=== PATIENT | male | born 1985 | race African-American/Black ===

== ENCOUNTER 2023-06-23 14:18 | Emergency (ER) | payer SELFPAY ==
--- NOTE | ~2023-06-23 | CT_ITS ---
EXAMINATION: CT ABDOMEN AND PELVIS WITHOUT CONTRAST CLINICAL INFORMATION: Hematuria. Kidney stones. COMPARISON: None available. TECHNIQUE: Multidetector volumetric imaging was performed from the superior aspect of the liver through the pubic symphysis. Sagittal and coronal reformatted images were obtained on the technologist's workstation. This CT examination was performed using dose optimization techniques as appropriate, variously including the following: *Automated exposure control *Adjustment of mA and/or kV according to patient size (this includes techniques or standardized protocols for targeted exams where dose is matched to indication/reason for exam; i.e. extremities or head) *Use of iterative reconstruction technique DLP: 1192 mGy-cm FINDINGS: Visualized lung bases are well aerated. The liver is normal in size but demonstrates diffusely decreased attenuation. The gallbladder is normal in appearance. The pancreas, spleen and adrenal glands are unremarkable. There is a 4 mm calculus within the left renal pelvis, however, there is no associated hydronephrosis. No right-sided renal calculi or right-sided hydronephrosis identified. Normal caliber loops of small and large bowel. Normal appendix. Normal caliber abdominal aorta. No retroperitoneal lymphadenopathy. The bladder is decompressed and therefore not accurately evaluated. The prostate gland is normal in size. Small left and moderate right-sided fat-containing inguinal hernias. No inguinal lymphadenopathy. No gross free pelvic fluid. Mild diffuse degenerative changes of the spine. CT/CT abdomen pelvis wo IV con IMPRESSION: -4 mm calculus within the left renal pelvis, however, there is no associated hydronephrosis. -Diffusely decreased liver attenuation suggesting hepatic steatosis. Correlation with liver enzymes recommended. Fleischner guidelines were followed.
[2023-06-23 15:02] VITALS: BP 147/62; PULSE 95; RESP 18; TEMP 36.6; O2SAT 96; BMI 42.3
--- NOTE | 2023-06-23 15:07 | ED_ITS ---
HPI - Male Genitourinary General Chief complaint: Urogenital-Male Stated complaint: Blood in Urine Time Seen by Provider: 06/23/23 17:24 Source: patient Mode of arrival: ambulatory Limitations: no limitations History of Present Illness HPI Narrative: This is a 38-year-old male history of obesity presenting to the emergency department with blood-tinged urine for the past 24 hours. Denies any other associated symptoms. No history of kidney stones. Denies urinary frequency, urgency, back pain, abdominal pain, nausea, vomiting, fevers, chills, testicular pain, chest pain, shortness of breath. Related Data Previous Rx's Medication Instructions Recorded cefuroxime axetil 250 mg tablet 250 mg PO BID 7 days #14 tabs 06/23/23 ciprofloxacin 0.3 %-dexamethasone 4 drp otic (ear) right BID 7 days 06/23/23 0.1 % ear drops,suspension #7.5 mL ketorolac 10 mg tablet 10 mg PO TID PRN pain 5 days #15 06/23/23 tabs prednisone 20 mg tablet 20 mg PO DAILY 5 days #5 tabs 06/23/23 tamsulosin 0.4 mg capsule (Flomax) 0.4 mg PO DAILY 2 weeks #14 caps 06/23/23 Allergies Allergy/AdvReac Type Severity Reaction Status Date / Time No Known Allergies Allergy Verified 06/23/23 15:02 Review of Systems 2 Review of Systems: Yes all other systems are reviewed and are negative [facility] Past Medical History Attestation statement: The following information was validated with the patient. Source: old records reviewed and nursing notes reviewed Social History Social History Advance Directives: No Advance Directives Information Provided: No Physical Exam 2 Vital Signs: Vital Signs: Last Vital Signs Temp 98.0 F 06/23/23 19:55 Pulse 96 06/23/23 19:55 Resp 18 06/23/23 19:55 BP 141/68 H 06/23/23 19:55 Pulse Ox 96 06/23/23 19:55 O2 Del Method Room Air 06/23/23 19:55 BMI result Body Mass Index 42.3 Vital signs stable Appearance: Alert.? Oriented X3.? No acute distress.? Head: Normocephalic, atraumatic, no step-offs or deformities Eyes: Pupils equal, round and reactive to light.? CVS: Normal heart rate and rhythm.? Pulses normal.? Respiratory: No respiratory distress.? Breath sounds normal.? Abdomen: Soft and nontender.? Skin: Skin warm and dry.? Normal skin color.? Normal skin turgor.? Extremities: No lower extremity edema.? No calf ttp. 5/5 strength to bilateral upper and lower extremities Back: No midline tenderness, no C-spine tenderness, full range of motion, no CVA tenderness bilaterally Neuro: Oriented X 3.? No motor deficit.? No sensory deficit. CN 2-12 intact Course Course Course Narrative: RME: 38 yold male presents to the ED for dysuria, hematuria for the past couple of days. patient denies any flank pain, abdominal pain, nausea, vomitting, or trauma. labs and Abdominal CT scan ordered Reevaluation(s) Reevaluation #1: CBC with slight leukocytosis. No left shift. Chemistry unremarkable. Coags unremarkable. UA with large amount of blood. No bacteria. CT scan with a 4 mm calculus within the left renal pelvis no associated hydro. Diffusely decreased liver attenuation suggestive hepatic steatosis. Educated patient on diagnosis and treatment plan, answered all question, patient verbalizes understanding. At this time patient will be discharged home, advised to return with new or worsening symptoms. Educated on worrisome signs and symptoms and when to return. At this time I feel comfortable discharge home. Time: 18:25 Reevaluation #2: SPoke with URBAN Grimaldo who states patient should be discharged with ciprodex for right ear infection. She saw patient, but did not get chance to send prescriotpiotn of ciprodex. patient instructed on worrisome signs Time: 19:28 Medications Administered Discontinued Medications Generic Name Dose Route Start Last Admin Trade Name Freq PRN Reason Stop Dose Admin Sodium Chloride 1,000 mls @ 999 mls/hr 06/23/23 18:00 06/23/23 19:30 Ns IV 06/23/23 19:00 Infused .Q1H1M JARVIS Infusion Ketorolac Tromethamine 30 mg 06/23/23 17:47 06/23/23 18:04 Ketorolac Tromethamine 30 Mg/Ml Vial IVPUSH 06/23/23 17:48 30 mg ONCE ONE Administration Prednisone 20 mg 06/23/23 17:47 06/23/23 18:04 Prednisone 20 Mg Tablet PO 06/23/23 17:48 20 mg ONCE ONE Administration Tamsulosin HCl 0.4 mg 06/23/23 17:47 06/23/23 18:04 Tamsulosin Hcl 0.4 Mg Capsule PO 06/23/23 17:48 0.4 mg ONCE ONE Administration Medical Decision Making Medical Decision Making [facility] Narrative: 38-year-old male presents with hematuria for the past 24 hours. On blood thinners Physical exam benign Concerns for bloody cystitis versus UTI versus kidney stone. Unlikely obstructing uropathy. Unlikely acute blood loss anemia. Plan labs, imaging, urine. Differential Diagnosis Differential Diagnoses: The differential diagnosis associated with the presentation includes Concerns for bloody cystitis versus UTI versus kidney stone. Unlikely obstructing uropathy. Unlikely acute blood loss anemia. Admission/Observation Consideration of admission/observation: Escalation of care including admission/observation considered Lab Data [facility] Lab Attestation statement: I reviewed the patient's lab results. 06/23/23 15:26 06/23/23 15:26 Labs: Lab Results 06/23/23 06/23/23 Range/Units 15:26 16:45 WBC 10.9 H (4.8-10.8) X10*3/uL RBC 5.65 (4.60-5.80) X10*6/uL Hgb 15.4 (14.0-18.0) g/dl Hct 47.0 (42.0-52.0) % MCV 83.2 (80.0-98.0) fL MCH 27.3 (27.0-33.0) pg MCHC 32.8 (31.0-36.0) g/dl RDW 13.5 (11.0-16.0) % Plt Count 333 (160-400) X10*3/uL MPV 10.3 (9.4-12.4) fL Immature Gran % (Auto) 0.5 H (0.0-0.4) % Neut % (Auto) 65.3 (45-73) % Lymph % (Auto) 25.1 (20-40) % [place] % (Auto) 5.8 (2-11) % Eos % (Auto) 2.8 (0-4) % Baso % (Auto) 0.5 (0-2) % Lymph # (Auto) 2.7 (1.2-4.9) X10*3/uL [place] # (Auto) 0.6 (0.1-1.2) X10*3/uL Eos # (Auto) 0.3 (0.0-0.4) X10*3/uL Baso # (Auto) 0.1 (0.0-0.2) X10*3/uL Abs Immat Gran (auto) 0.05 H (0.00-0.03) X10*3/uL Absolute Neuts (auto) 7.1 (2.0-8.3) x10*3/uL Absolute Nucleated RBC 0.000 (0.0-0.012) X10*3/uL Nucleated RBC % (auto) 0.0 (0.0-0.2) /100WBC PT 10.9 L (11.1-13.3) SEC INR 0.9 (0.9-1.1) APTT 33.8 (26.0-36.8) SEC Sodium 141 (135-145) mmol/L Potassium 4.0 (3.3-5.1) mmol/L Chloride 107 (96-108) mmol/L Carbon Dioxide 24 (22-29) mmol/L Anion Gap 14 (12-20) BUN 13 (9-16) mg/dL Creatinine 0.84 (0.5-1.4) mg/dL Estim Creat Clear Calc 182.2 Estimated GFR > 60 Random Glucose 91 (60-115) mg/dL Calcium 9.4 (8.4-10.2) mg/dL Total Bilirubin 0.4 (0.0-1.0) mg/dL AST 12 (5-37) U/L ALT 24 (0-40) U/L Alkaline Phosphatase 90 (39-117) U/L Total Protein 8.3 H (6.5-8.0) g/dL Albumin 4.3 (3.5-5.0) g/dL Urine Color Yellow Urine Appearance Cloudy Urine pH 5.0 (5.0-9.0) Ur Specific [place] 1.020 (1.005-1.025) Urine Protein Trace (Neg-Trace) mg/dL Urine Glucose (UA) Negative (Negative) mg/dL Urine Ketones Negative (Negative) mg/dL Urine Blood Large (3+) H (Negative) Urine Nitrite Negative (Negative) Ur Leukocyte Esterase Negative (Negative) Urine RBC >20 H (0-2) /HPF Urine WBC 0-5 (0-5) /HPF Ur Squamous Epith Cells 0-2 (0-2) /HPF Urine Bacteria None Seen (None Seen) Hyaline Casts 0-2 (0-2) /LPF Independent Interpretation I performed an independent interpretation of an: CT Scan (CT/CT abdomen pelvis wo IV con IMPRESSION: -4 mm calculus within the left renal pelvis, however, there is no associated hydronephrosis. -Diffusely decreased liver attenuation suggesting hepatic steatosis. Correlation with liver enzymes recommended. Fleischner guidelines were followed.) Radiology Impression Discussion of test interpretation with radiology: I have reviewed the radiologist's reading. Prescription Management I considered prescription management with: Pain Medication and Other (Steroids, Flomax) Chronic Conditions Patient?s care impacted by: Other (Obesity) Critical Care Time Critical Care Time Critical Care Time: No Discharge Plan Discharge Clinical Impression: Kidney calculi, Hematuria, Otitis externa Patient Disposition: Home, Self-Care Instructions: Kidney Stones (ED), Hematuria (ED) Additional Instructions: Take your medications as prescribed. If you were prescribed antibiotics today, it is important that you take your medication to their entirety, do not skip any doses, do not finish them early. Follow-up with your primary care provider this week. Return to the emergency department with new or worsening symptoms. Such as fevers, chills, chest pain, shortness of breath, nausea, vomiting, dizziness, headache, vision changes, lethargy In case of emergency call 911 Follow up with urology Toradol has been sent to your pharmacy this medication is for pain, you tolerated this well in the department. Please take this as prescribed do not take this with ibuprofen, or other NSAIDs, do not mix this with alcohol. Side effects of this medication including increased risk for bleeding and possible kidney injury. CT/CT abdomen pelvis wo IV con IMPRESSION: -4 mm calculus within the left renal pelvis, however, there is no associated hydronephrosis. -Diffusely decreased liver attenuation suggesting hepatic steatosis. Correlation with liver enzymes recommended. Fleischner guidelines were followed. Prescriptions: New cefuroxime axetil 250 mg tablet 250 mg PO BID 7 Days Qty: 14 0RF prednisone 20 mg tablet 20 mg PO DAILY 5 Days Qty: 5 0RF tamsulosin [Flomax] 0.4 mg capsule 0.4 mg PO DAILY 14 Days Qty: 14 0RF ketorolac 10 mg tablet 10 mg PO TID PRN (Reason: pain) 5 Days Qty: 15 0RF ciprofloxacin-dexamethasone 0.3-0.1 % drops,suspension 4 drp otic (ear) right BID 7 Days Qty: 7.5 0RF Referrals: [facility] [Provider Group] - 1 week Physician,None [Primary Care Provider] - 2 days Stand Alone Forms: Work/School Release Interventions: ED Discharge Assessment Last Done: 06/23/23 19:57 Discharge Date/Time: 06/23/23 19:58
[2023-06-23 15:44] LABS: MANUAL DIFF FLAG NO
[2023-06-23 15:47] LABS: Basophils Absolute Auto 0.1 X10*3/uL (0.0-0.2); Basophils Percent Auto 0.5 % (0-2); Eosinophils Absolute Auto 0.3 X10*3/uL (0.0-0.4); Eosinophils Percent Auto 2.8 % (0-4); Hemoglobin 15.4 g/dl (14.0-18.0); Imm Gran Abs Auto 0.05 X10*3/uL (0.00-0.03); Imm Gran Pct Auto 0.5 % (0.0-0.4); Lymphocytes Absolute Auto 2.7 X10*3/uL (1.2-4.9); Lymphocytes Percent Auto 25.1 % (20-40); Mean Corpuscular HGB Conc 32.8 g/dl (31.0-36.0); Mean Corpuscular Hemoglobin 27.3 pg (27.0-33.0); Mean Corpuscular Volume 83.2 fL (80.0-98.0); Mean Platelet Volume 10.3 fL (9.4-12.4); Monocytes Absolute Auto 0.6 X10*3/uL (0.1-1.2); Monocytes Percent Auto 5.8 % (2-11); Neutrophils Absolute Auto 7.1 x10*3/uL (2.0-8.3); Neutrophils Percent Auto 65.3 % (45-73); Platelet Count 333 X10*3/uL (160-400); Red Blood Count 5.65 X10*6/uL (4.60-5.80); Red Cell Distribution Width 13.5 % (11.0-16.0); White Blood Count 10.9 X10*3/uL (4.8-10.8)
[2023-06-23 15:57] LABS: INTERNATIONAL NORM RATIO 0.9 (0.9-1.1); Prothrombin Time 10.9 SEC (11.1-13.3)
[2023-06-23 16:00] LABS: Partial Thromboplastin Time 33.8 SEC (26.0-36.8)
[2023-06-23 16:04] LABS: Alanine Aminotransferase 24 U/L (0-40); Albumin Level 4.3 g/dL (3.5-5.0); Alkaline Phosphatase 90 U/L (39-117); Anion Gap 14 (12-20); Aspartate Amino Transferase 12 U/L (5-37); Bilirubin Total 0.4 mg/dL (0.0-1.0); Blood Urea Nitrogen 13 mg/dL (9-16); Calcium 9.4 mg/dL (8.4-10.2); Carbon Dioxide 24 mmol/L (22-29); Chloride 107 mmol/L (96-108); Creatinine Clr Calc Pharmacy 182.2; Estimated Glomerular Filt Rate > 60; Glucose Random 91 mg/dL (60-115); Sodium 141 mmol/L (135-145); Total Protein 8.3 g/dL (6.5-8.0)
[2023-06-23 16:58] LABS: Appearance Urine Cloudy; Color Urine Yellow; Glucose Urine UA Negative (Negative); Leukocyte Esterase Urine Negative (Negative); Nitrite Urine Negative (Negative); UMIC TRIGGER UACC YES; Urine Blood Large (3+) (Negative); Urine Ketones Negative (Negative); Urine Protein Trace mg/dL (Neg-Trace)
[2023-06-23 17:01] LABS: Bacteria Urine None Seen (None Seen); Hyaline Casts Urine 0-2 /LPF (0-2); RBC Urine >20 /HPF (0-2); Squamous Epithelial Cell Urine 0-2 /HPF (0-2); WBC Urine 0-5 /HPF (0-5)
--- NOTE | 2023-06-23 17:50 | PC.NURSE ---
patient a&ox3, iv inserted by provider, pt medicated per order, call coombs within reach, family at bedside, will continue to monitor
[2023-06-23] MEDS: 0.9 % Sodium Chloride 1,000 ML 999 ML IV (17:59)
[2023-06-23] MEDS: Ketorolac Tromethamine 30 MG/ML VIAL IVPUSH (18:04)
[2023-06-23] MEDS: predniSONE 20 MG TABLET PO (18:04)
[2023-06-23] MEDS: Tamsulosin HCL 0.4 MG CAPSULE PO (18:04)
[2023-06-23 19:53] VITALS: BP 141/68; PULSE 96; RESP 18; TEMP 36.7; O2SAT 96
[2023-06-23 19:55] VITALS: BP 141/68; PULSE 96; RESP 18; TEMP 36.7; O2SAT 96
== END 2023-06-23 19:58 | disposition home or self-care (01) ==
PROVIDERS: Physician Assistant; Emergency Provider Emergency Medicine
DX: N20.0 Calculus of kidney (principal); H60.91 Unspecified otitis externa, right ear; R31.9 Hematuria, unspecified; R10.2 Pelvic and perineal pain; Z79.899 Other long term (current) drug therapy
CPT/HCPCS: 36415; 74176; 80053; 81001; 85025; 85610; 85730; 96361; 96374; 99284; J1885

== ENCOUNTER 2024-04-07 07:59 | Emergency (ER) | payer MEDICAID, SELFPAY ==
--- NOTE | ~2024-04-07 | CT_ITS ---
EXAMINATION: CT ABDOMEN AND PELVIS WITHOUT CONTRAST CLINICAL INFORMATION: Left flank pain. COMPARISON: 06/23/2023. TECHNIQUE: Multidetector volumetric imaging was performed from the superior aspect of the liver through the pubic symphysis. Sagittal and coronal reformatted images were obtained on the technologist's workstation. This CT examination was performed using dose optimization techniques as appropriate, variously including the following: *Automated exposure control *Adjustment of mA and/or kV according to patient size (this includes techniques or standardized protocols for targeted exams where dose is matched to indication/reason for exam; i.e. extremities or head) *Use of iterative reconstruction technique DLP: 1019 mGy-cm FINDINGS: LUNG BASES: -Lung bases are clear bilaterally. There are no effusions. Heart size is normal. Normal GE junction. LIVER, GALLBLADDER, AND BILIARY TREE: The liver is normal in size, shape, and attenuation. No focal hepatic lesion or biliary ductal dilatation is present. The gallbladder is somewhat contracted with no evidence of radiopaque gallstones, gallbladder wall thickening, or obvious pericholecystic inflammatory changes. PANCREAS: Unremarkable. SPLEEN: Unremarkable. ADRENAL GLANDS: Unremarkable. KIDNEYS AND URETERS: -There is moderate left hydronephrosis and left hydroureter. There is an obstructing 5 x 4 mm calculus at the left UVJ. -There is no right-sided hydronephrosis, mass, or calculus. The right ureter is nondilated. BLADDER: Unremarkable. GASTROINTESTINAL TRACT: The small and large bowel are unremarkable. The appendix is unremarkable. ABDOMINAL WALL: -There is a small fat-containing right inguinal hernia. -Otherwise normal. LYMPH NODES: Normal. VASCULAR: Unremarkable. PELVIC VISCERA: Unremarkable. OSSEOUS STRUCTURES: -No acute findings, and no suspicious lytic or blastic bone lesions. -Mild spinal degenerative spondylosis, most significant L5-S1. -Hemangioma noted T10. CT/CT abdomen pelvis wo IV con IMPRESSION: 1. Moderate left hydronephrosis and hydroureter secondary to the presence of a 4 x 5 mm obstructing calculus at the left UVJ. 2. No additional renal calculi or obstruction. Kidneys otherwise image normally. 3. Additional ancillary findings as discussed in the body of the report. Electronically signed by: Bryan Hdz MD 04/07/2024 01:[address] [facility]
[2024-04-07 08:05] VITALS: BP 130/94; PULSE 79; RESP 18; TEMP 36.8; O2SAT 98; BMI 41.1
[2024-04-07 08:26] LABS: MANUAL DIFF FLAG NO
[2024-04-07 08:29] LABS: Appearance Urine Clear; Color Urine Yellow; Glucose Urine UA Negative (Negative); Leukocyte Esterase Urine Negative (Negative); Nitrite Urine Negative (Negative); PH 5.5 (5.0-9.0); Specific Gravity - Urine >= 1.030 (1.005-1.025); UMIC TRIGGER UACC YES; Urine Blood Trace (Negative); Urine Ketones Trace mg/dL (Negative); Urine Protein Trace mg/dL (Neg-Trace)
[2024-04-07 08:41] LABS: Alanine Aminotransferase 24 U/L (0-40); Albumin Level 4.1 g/dL (3.5-5.0); Alkaline Phosphatase 84 U/L (39-117); Anion Gap 12 (12-20); Aspartate Amino Transferase 15 U/L (5-37); Bilirubin Direct 0.2 mg/dL (0.0-0.5); Bilirubin Total 0.5 mg/dL (0.0-1.0); Blood Urea Nitrogen 12 mg/dL (9-16); Calcium 9.3 mg/dL (8.4-10.2); Carbon Dioxide 23 mmol/L (22-29); Chloride 111 mmol/L (96-108); Creatinine Clr Calc Pharmacy 101.8; Estimated Glomerular Filt Rate 53; Glucose Random 95 mg/dL (60-115); Lipase 11 U/L (8-78); Potassium 3.9 mmol/L (3.3-5.1); Sodium 142 mmol/L (135-145); Total Protein 7.6 g/dL (6.5-8.0)
[2024-04-07 08:42] LABS: Bacteria Urine None Seen (None Seen); Hyaline Casts Urine 0-2 /LPF (0-2); RBC Urine 0-2 /HPF (0-2); Squamous Epithelial Cell Urine 0-2 /HPF (0-2); WBC Urine 0-5 /HPF (0-5)
[2024-04-07 08:43] LABS: Basophils Percent Auto 0.2 % (0-2); Eosinophils Absolute Auto 0.2 X10*3/uL (0.0-0.4); Eosinophils Percent Auto 1.3 % (0-4); Hematocrit 41.4 % (42.0-52.0); Hemoglobin 13.6 g/dl (14.0-18.0); Imm Gran Abs Auto 0.05 X10*3/uL (0.00-0.03); Imm Gran Pct Auto 0.4 % (0.0-0.4); Lymphocytes Absolute Auto 1.9 X10*3/uL (1.2-4.9); Mean Corpuscular HGB Conc 32.9 g/dl (31.0-36.0); Mean Corpuscular Hemoglobin 27.9 pg (27.0-33.0); Mean Corpuscular Volume 84.8 fL (80.0-98.0); Mean Platelet Volume 10.3 fL (9.4-12.4); Monocytes Absolute Auto 0.8 X10*3/uL (0.1-1.2); Monocytes Percent Auto 6.7 % (2-11); Neutrophils Absolute Auto 9.2 x10*3/uL (2.0-8.3); Neutrophils Percent Auto 75.4 % (45-73); Platelet Count 314 X10*3/uL (160-400); Red Blood Count 4.88 X10*6/uL (4.60-5.80); Red Cell Distribution Width 13.2 % (11.0-16.0); White Blood Count 12.2 X10*3/uL (4.8-10.8)
--- NOTE | 2024-04-07 09:59 | ED.ABDPAIN ---
HPI - Abdominal Pain General Chief Complaint: Abdominal Pain Stated Complaint: Back pain Time Seen by Provider: 04/07/24 09:25 Source: patient and family Mode of arrival: ambulatory History of Present Illness ED Provider: Sophia HPI narrative: 38-year-old male with history of renal colic, comes in with 3 weeks of persistent right flank pain and intermittent severity with associated nausea and comes in this morning because it started again yesterday with a severity Related Data Previous Rx's ?Medication ?Instructions ?Recorded cefuroxime axetil 250 mg tablet 250 mg PO BID 7 days #14 tabs 06/23/23 ciprofloxacin 0.3 %-dexamethasone 4 drp otic (ear) right BID 7 days 06/23/23 0.1 % ear drops,suspension #7.5 mL ketorolac 10 mg tablet 10 mg PO TID PRN pain 5 days #15 06/23/23 tabs prednisone 20 mg tablet 20 mg PO DAILY 5 days #5 tabs 06/23/23 tamsulosin 0.4 mg capsule (Flomax) 0.4 mg PO DAILY 2 weeks #14 caps 06/23/23 ondansetron 4 mg disintegrating 4 mg PO Q8H PRN nausea and 04/07/24 tablet vomiting #10 tabs prednisone 20 mg tablet 20 mg PO DAILY #4 tabs 04/07/24 tamsulosin 0.4 mg capsule (Flomax) 0.4 mg PO BEDTIME #5 caps 04/07/24 Allergies Allergy/AdvReac Type Severity Reaction Status Date / Time No Known Allergies Allergy Verified 04/07/24 08:08 Review of Systems Review of Systems Pertinent positives and negatives as stated in HPI PMFSH Social History Social History Advance Directives: No Advance Directives Information Provided: Yes Do you have a plan to hurt others: No Plan Physical Exam ED Vital Signs: Vital Signs - 24 hr 04/07/24 08:05 Temperature 98.2 F Pulse Rate 79 Respiratory Rate 18 Blood Pressure 130/94 H Pulse Oximetry 98 Oxygen Delivery Method Room Air BMI result Body Mass Index 41.1 VITAL SIGNS: Reviewed. GENERAL: Well developed, well nourished, in no acute distress. HEAD: Normocephalic/atraumatic EYES: PERRLA, EOMI EARS: Ext canals without abnormality NOSE: Nares patent bilateral OROPHARYNX: no oral lesions noted, posterior pharynx clear NECK: Supple, no adenopathy LUNGS: Normal breath sounds. No adventitious sounds or accessory muscle use. SpO2<98> CARDIOVASCULAR: Regular rate and rhythm without noted murmurs ABDOMEN: Soft, non-tender, non-distended with bowel sounds. MUSCULOSKELETAL: No tenderness, deformities, or effusions noted on gross inspection. EXTREMITIES: No cyanosis, clubbing or edema. SKIN: Inspection of the skin reveals no rashes NEUROLOGIC: Alert and oriented x 4. Strength and sensation to light touch were grossly intact x 4. Medical Decision Making Medical Decision Making MDM Narrative: 38-year-old male with history and clinical presentation, DDX: Acute on chronic back pain, renal colic, pyelonephritis, urinary tract infection I reviewed interpreted all investigations and there is a noninfectious leukocytosis, without anemia or thrombocytopenia. There is a demonstrate an LUZ which is new, otherwise no electrolyte or liver enzyme derangements. Urinalysis with trace blood. INTERVENTION: IVF, anti-emetics, pain medications, flomax On my interpretation there is a 4 x 5 mm stone noted at the left UVJ with mild hydro and official read corroborates. 1313: on re-evaluation patient is feeling much improved, will repeat BMP to ensure Improvement in creatinine. Differential Diagnosis Differential Diagnoses: The differential diagnosis associated with the presentation includes See above Admission/Observation Consideration of admission/observation: Escalation of care including admission/observation considered patient does not meet inpatient level of care Lab Data MDM Lab Attestation statement: I reviewed the patient's lab results. See above 04/07/24 08:20 04/07/24 08:20 Labs: Lab Results 04/07/24 Range/Units 08:20 WBC 12.2 H (4.8-10.8) X10*3/uL RBC 4.88 (4.60-5.80) X10*6/uL Hgb 13.6 L (14.0-18.0) g/dl Hct 41.4 L (42.0-52.0) % MCV 84.8 (80.0-98.0) fL MCH 27.9 (27.0-33.0) pg MCHC 32.9 (31.0-36.0) g/dl RDW 13.2 (11.0-16.0) % Plt Count 314 (160-400) X10*3/uL MPV 10.3 (9.4-12.4) fL Immature Gran % (Auto) 0.4 (0.0-0.4) % Neut % (Auto) 75.4 H (45-73) % Lymph % (Auto) 16.0 L (20-40) % [place] % (Auto) 6.7 (2-11) % Eos % (Auto) 1.3 (0-4) % Baso % (Auto) 0.2 (0-2) % Lymph # (Auto) 1.9 (1.2-4.9) X10*3/uL [place] # (Auto) 0.8 (0.1-1.2) X10*3/uL Eos # (Auto) 0.2 (0.0-0.4) X10*3/uL Baso # (Auto) 0.0 (0.0-0.2) X10*3/uL Abs Immat Gran (auto) 0.05 H (0.00-0.03) X10*3/uL Absolute Neuts (auto) 9.2 H (2.0-8.3) x10*3/uL Absolute Nucleated RBC 0.000 (0.0-0.012) X10*3/uL Nucleated RBC % (auto) 0.0 (0.0-0.2) /100WBC Sodium 142 (135-145) mmol/L Potassium 3.9 (3.3-5.1) mmol/L Chloride 111 H (96-108) mmol/L Carbon Dioxide 23 (22-29) mmol/L Anion Gap 12 (12-20) BUN 12 (9-16) mg/dL Creatinine 1.48 H (0.5-1.4) mg/dL Estim Creat Clear Calc 101.8 Estimated GFR 53 Random Glucose 95 (60-115) mg/dL Calcium 9.3 (8.4-10.2) mg/dL Total Bilirubin 0.5 (0.0-1.0) mg/dL Direct Bilirubin 0.2 (0.0-0.5) mg/dL AST 15 (5-37) U/L ALT 24 (0-40) U/L Alkaline Phosphatase 84 (39-117) U/L Total Protein 7.6 (6.5-8.0) g/dL Albumin 4.1 (3.5-5.0) g/dL Lipase 11 (8-78) U/L Urine Color Yellow Urine Appearance Clear Urine pH 5.5 (5.0-9.0) Ur Specific [place] >= 1.030 H (1.005-1.025) Urine Protein Trace (Neg-Trace) mg/dL Urine Glucose (UA) Negative (Negative) mg/dL Urine Ketones Trace (Negative) mg/dL Urine Blood Trace H (Negative) Urine Nitrite Negative (Negative) Ur Leukocyte Esterase Negative (Negative) Urine RBC 0-2 (0-2) /HPF Urine WBC 0-5 (0-5) /HPF Ur Squamous Epith Cells 0-2 (0-2) /HPF Urine Bacteria None Seen (None Seen) Hyaline Casts 0-2 (0-2) /LPF Radiology Impression Discussion of test interpretation with radiology: I have reviewed the radiologist's reading. Radiologist Impression: see above External Record Review External record reviewed: Prior outpatient labs and Prior outpatient radiology Medications Administered Discontinued Medications Generic Name Dose Route Start Last Admin Trade Name Freq PRN Reason Stop Dose Admin Sodium Chloride 1,000 mls @ 999 mls/hr 04/07/24 09:30 04/07/24 10:16 Ns IV 04/07/24 10:30 999 mls/hr .Q1H1M JARVIS Administration Ketorolac Tromethamine 15 mg 04/07/24 09:30 04/07/24 10:17 Ketorolac Tromethamine 30 Mg/Ml Vial IVPUSH 04/07/24 09:31 15 mg ONCE ONE Administration Ketorolac Tromethamine 15 mg 04/07/24 10:33 04/07/24 11:09 Ketorolac Tromethamine 30 Mg/Ml Vial IVPUSH 04/07/24 10:34 15 mg ONCE ONE Administration Ondansetron HCl 4 mg 04/07/24 09:30 04/07/24 10:15 Ondansetron Hcl 4 Mg/2 Ml Vial IVPUSH 04/07/24 09:31 4 mg ONCE ONE Administration Tamsulosin HCl 0.4 mg 04/07/24 10:33 04/07/24 11:08 Tamsulosin Hcl 0.4 Mg Capsule PO 04/07/24 10:34 0.4 mg ONCE ONE Administration Critical Care Time Critical Care Time Critical Care Time: Yes Total Critical Care Time: 30 Attestation: I attest the time spent in the care of this patient. Discharge Plan Discharge Clinical Impression: Renal colic, Ureterolithiasis, Hydronephrosis, LUZ (acute kidney injury) Patient Disposition: Home, Self-Care Instructions: Renal Colic (ED), Hydronephrosis (ED), Ureteral Stones (ED) Additional Instructions: resume all home medications as prescribed. Tylenol 1000 mg, orally, every 6 hours as needed for pain control. Do not exceed 4000 mg within 24 hours. Ibuprofen 400 mg, orally with milk or food, every 6 hours as needed for pain control. I recommend that you take this with the Tylenol for improved symptom relief. Increase the amount of water that you drink, you have been given a prescription for medication that should help you pass the stone, you have also been given a referral to follow-up with urology. Prescriptions: New prednisone 20 mg tablet 20 mg PO DAILY Qty: 4 0RF tamsulosin [Flomax] 0.4 mg capsule 0.4 mg PO BEDTIME Qty: 5 0RF ondansetron 4 mg tablet,disintegrating 4 mg PO Q8H PRN (Reason: nausea and vomiting) Qty: 10 0RF No Action cefuroxime axetil 250 mg tablet 250 mg PO BID 7 Days Qty: 14 0RF prednisone 20 mg tablet 20 mg PO DAILY 5 Days Qty: 5 0RF tamsulosin [Flomax] 0.4 mg capsule 0.4 mg PO DAILY 14 Days Qty: 14 0RF ketorolac 10 mg tablet 10 mg PO TID PRN (Reason: pain) 5 Days Qty: 15 0RF ciprofloxacin-dexamethasone 0.3-0.1 % drops,suspension 4 drp otic (ear) right BID 7 Days Qty: 7.5 0RF Referrals: Jarrett Suazo MD [Physician] - Print Language: [place]an
[2024-04-07] MEDS: ondansetron HCL 4 MG/2 ML VIAL IVPUSH (10:15)
[2024-04-07] MEDS: 0.9 % Sodium Chloride 1,000 ML 999 ML IV (10:16)
[2024-04-07] MEDS: Ketorolac Tromethamine 30 MG/ML VIAL 15 MG IVPUSH ×2 (10:17→11:09)
[2024-04-07] MEDS: Tamsulosin HCL 0.4 MG CAPSULE PO (11:08)
[2024-04-07 13:32] VITALS: BP 131/83; PULSE 74; RESP 16; TEMP 36.2; O2SAT 98
[2024-04-07 13:35] LABS: Anion Gap 12 (12-20); Blood Urea Nitrogen 11 mg/dL (9-16); Calcium 9.2 mg/dL (8.4-10.2); Carbon Dioxide 24 mmol/L (22-29); Chloride 111 mmol/L (96-108); Creatinine Clr Calc Pharmacy 99.1; Estimated Glomerular Filt Rate 51; Glucose Random 88 mg/dL (60-115); Sodium 143 mmol/L (135-145)
== END 2024-04-07 13:34 | disposition home or self-care (01) ==
PROVIDERS: Emergency Provider Student in an Organized Health Care Education/Training Program
DX: N13.2 Hydronephrosis with renal and ureteral calculous obstruction (principal); R10.2 Pelvic and perineal pain; Z79.899 Other long term (current) drug therapy
CPT/HCPCS: 36415; 74176; 80048; 80053; 81001; 82248; 83690; 85025; 96374; 96375; 96376; 99284; J1885; J2405

== ENCOUNTER → 2024-04-07 09:30 | Outpatient (BNV) | payer OTHER, SELFPAY | PROVIDERS: Emergency Provider Student in an Organized Health Care Education/Training Program; Visit Provider Radiology Diagnostic Radiology | DX: N13.30 Unspecified hydronephrosis (principal) | CPT/HCPCS: 74176 ==

== ENCOUNTER 2024-04-15 08:41 | Outpatient (AMB) | payer MEDICAID, SELFPAY ==
--- NOTE | 2024-04-15 00:12 | MHC.OFFVIS ---
Intake Visit Reasons: obstructing stone/moderate hydronephrosis Intake Note: New patient is present to establish care for obstructing stone/moderate hydronephrosis Any Urology Medications: None Antibiotic Allergy: none Blood Thinner: None Family History: Bladder Cancer? No Prostate Cancer? Father Patient Symptoms: Patient states his lower back pain returned last night Dietary Services Manager Required: No Accompanied by: Spouse Allergies No Known Allergies Allergy (Verified 04/15/24 09:08) Medication List - Last Reconciled 04/15/24 by Jarrett Suazo MD oxycodone 5 mg PO Q6-8H PRN tamsulosin (Flomax) 0.4 mg PO BEDTIME HPI Comments Details: 04/15/24-- Joaquin is a 38-year-old male who presented to the ED on 04/07/2024 for left flank pain, CT imaging noted a 5 mm left UVJ stone with [id number] hydronephrosis. The patient is here with his . The patient states that he received 5 days of Flomax he is still having intermittent pain and does not think he passed the stone. I have discussed treatment plan to include left ureteroscopy laser lithotripsy of stone. Pamphlet given to review as well. I will prescribe another script for Flomax and 6 tablets of oxycodone. Patient advised to avoid NSAIDs. 04/07/24--CTAP-Moderate left hydronephrosis and hydroureter secondary to the presence of a 4 x 5 mm obstructing calculus at the left UVJ. No additional renal calculi or obstruction. Kidjeremias Review of Systems Const All systems reviewed & are unremarkable except as noted in HPI and below Reports no additional complaints Eyes Reports no additional complaints ENT Reports no additional complaints Card Reports no additional complaints Resp Reports no additional complaints GI Reports no additional complaints Reports as per HPI Musc Reports no additional complaints Skin/Breast Reports system reviewed and no additional complaints, except as documented Neuro Reports no additional complaints Psych Reports no additional complaints Endo Reports no additional complaints Justin/Lymph Reports no additional complaints Aller/Immun Reports no additional complaints Physical Exam Const General: healthy appearing, no acute distress and well developed Nutritional Appearance: overweight Orientation/consciousness: patient oriented x3 HEENT Head: Yes normocephalic and Yes atraumatic Eyes Conjunctivae: conjunctivae normal Neck Neck: Yes normal visual inspection Chest Chest palpation & inspection: normal inspection of the chest Resp Effort & Inspection: normal respiratory effort Cardio Rate: regular rate GI Inspection: Yes normal to inspection Neuro General: patient oriented x3 Extrem General: No pedal edema Psych Appearance: grossly normal Affect: normal affect Results AMB Urinalysis, Automated UA Leukoctes 0 Doris/uL Last Edit by Lila Oconnell CMA on 04/15/24 09:05 UA Nitrite Negative Last Edit by Lila Oconnell CMA on 04/15/24 09:05 UA Urobilinogen 0.2 mg/dL Last Edit by Lila Oconnell CMA on 04/15/24 09:05 UA Protein 15 mg/dL Last Edit by Lila Oconnell, BRANDT on 04/15/24 09:05 UA pH 6.0 Last Edit by Lila Oconnell, BRANDT on 04/15/24 09:05 UA Blood 0 Lazaro/uL Last Edit by Lila Oconnell, BRANDT on 04/15/24 09:05 UA Specific [place] 1.030 Last Edit by Lila Oconnell CMA on 04/15/24 09:05 UA Ketone Negative Last Edit by Lila Oconnell CMA on 04/15/24 09:05 UA Bilirubin 0 mg/dL Last Edit by Lila Oconnell CMA on 04/15/24 09:05 UA Glucose 0 mg/dL Last Edit by Lila Oconnell CMA on 04/15/24 09:05 Results Reviewed Results Reviewed: Laboratory Last Values Urine pH (Auto) 6.0 04/15/24 08:58 Specific [place] (Auto) 1.030 04/15/24 08:58 Urine Protein (Auto) 15 mg/dL 04/15/24 08:58 Glucose (UA)(Auto) 0 mg/dL 04/15/24 08:58 Urine Ketones (Auto) Negative 04/15/24 08:58 Urine Blood (Auto) 0 Laazro/uL 04/15/24 08:58 Urine Nitrite (Auto) Negative 04/15/24 08:58 Urine Bilirubin (Auto) 0 mg/dL 04/15/24 08:58 Urine Urobilinogen (Auto) 0.2 mg/dL 04/15/24 08:58 Leukocyte Esterase (Auto) 0 Doris/uL 04/15/24 08:58 Date of Service: 12/05/24 CT ABDOMEN AND PELVIS WITHOUT CONTRAST CLINICAL INFORMATION: Left flank pain. COMPARISON: 06/23/2023. TECHNIQUE: Multidetector volumetric imaging was performed from the superior aspect of the liver through the pubic symphysis. Sagittal and coronal reformatted images were obtained on the technologist's workstation. This CT examination was performed using dose optimization techniques as appropriate, variously including the following: *Automated exposure control *Adjustment of mA and/or kV according to patient size (this includes techniques or standardized protocols for targeted exams where dose is matched to indication/reason for exam; i.e. extremities or head) *Use of iterative reconstruction technique DLP: 1019 mGy-cm FINDINGS: LUNG BASES: -Lung bases are clear bilaterally. There are no effusions. Heart size is normal. Normal GE junction. LIVER, GALLBLADDER, AND BILIARY TREE: The liver is normal in size, shape, and attenuation. No focal hepatic lesion or biliary ductal dilatation is present. The gallbladder is somewhat contracted with no evidence of radiopaque gallstones, gallbladder wall thickening, or obvious pericholecystic inflammatory changes. PANCREAS: Unremarkable. SPLEEN: Unremarkable. ADRENAL GLANDS: Unremarkable. KIDNEYS AND URETERS: -There is moderate left hydronephrosis and left hydroureter. There is an obstructing 5 x 4 mm calculus at the left UVJ. -There is no right-sided hydronephrosis, mass, or calculus. The right ureter is nondilated. BLADDER: Unremarkable. GASTROINTESTINAL TRACT: The small and large bowel are unremarkable. The appendix is unremarkable. ABDOMINAL WALL: -There is a small fat-containing right inguinal hernia. -Otherwise normal. LYMPH NODES: Normal. VASCULAR: Unremarkable. PELVIC VISCERA: Unremarkable. OSSEOUS STRUCTURES: -No acute findings, and no suspicious lytic or blastic bone lesions. -Mild spinal degenerative spondylosis, most significant L5-S1. -Hemangioma noted T10. IMPRESSION: 1. Moderate left hydronephrosis and hydroureter secondary to the presence of a 4 x 5 mm obstructing calculus at the left UVJ. 2. No additional renal calculi or obstruction. Kidneys otherwise image normally. 3. Additional ancillary findings as discussed in the body of the report. Assessment & Plan Assessment & Plan (1) Left ureteral stone: Code(s): N20.1 - Calculus of ureter Category: Medical (2) Hydronephrosis, left: Code(s): N13.30 - Unspecified hydronephrosis Category: Medical Plan Cystoscopy left ureteroscopy laser lithotripsy possible ureteral stent, tamsulosin, oxycodone 6. Tablets Orders: Orders AMB Urinalysis Automated Today Z13.9 - Encounter for screening, unspecified Medications: New tamsulosin (Flomax) 0.4 mg PO BEDTIME 10 caps 0RF to help pass stone oxycodone Partial Fill upon patient request. 5 mg PO Q6-8H PRN 6 tabs 0RF pain Discontinued tamsulosin (Flomax) Discontinued Reason: Patient Completed Course 0.4 mg PO DAILY 2 weeks 14 caps 0RF ketorolac Discontinued Reason: Patient Completed Course 10 mg PO TID 5 days PRN 15 tabs 0RF pain ciprofloxacin-dexamethasone 0.3-0.1 % Discontinued Reason: Patient Completed Course 4 drps otic (ear) right BID 7 days 7.5 mL 0RF ondansetron Discontinued Reason: Patient Completed Course 4 mg PO Q8H PRN 10 tabs 0RF nausea and vomiting prednisone Discontinued Reason: Patient Completed Course 20 mg PO DAILY 4 tabs 0RF tamsulosin (Flomax) Discontinued Reason: Patient Completed Course 0.4 mg PO BEDTIME 5 caps 0RF cefuroxime axetil Discontinued Reason: Patient Completed Course 250 mg PO BID 7 days 14 tabs 0RF prednisone Discontinued Reason: Patient Completed Course 20 mg PO DAILY 5 days 5 tabs 0RF Patient Instructions: The patient had an opportunity to ask questions regarding treatment plan. The patient expressed understanding and agreement with the above treatment plan. The patient is aware they should contact our office by phone for worsening of their current condition or the appearance of new symptoms. Compliance is encouraged with any medications and followup testing that is ordered. It is a privilege to be allowed the opportunity to participate in the urologic care of your patient. If you have any questions or concerns regarding treatment for the above conditions please do not hesitate to contact me. The office telephone contact is [phone]. This note is constructed in part using voice recognition software. While every effort has been made to ensure accuracy mattress renovator errors may have been included. Yours sincerely, Jarrett Suazo MD Coding Level of Care Code New Pt Level 4 (05281) Diagnoses Left ureteral stone N20.1 Hydronephrosis, left N13.30
== END 2024-04-15 09:38 | disposition home or self-care (01) ==
PROVIDERS: Visit Provider Urology
DX: N20.1 Calculus of ureter (principal); N13.30 Unspecified hydronephrosis; Z13.9 Encounter for screening, unspecified
CPT/HCPCS: 99204

== ENCOUNTER → 2024-04-15 08:41 | Outpatient (BNVA) | payer MEDICAID, SELFPAY | PROVIDERS: Visit Provider Urology | DX: N20.1 Calculus of ureter (principal); N13.30 Unspecified hydronephrosis | CPT/HCPCS: 81003; 99202 ==

== ENCOUNTER 2024-04-18 14:02 | Day surgery (SDC) | payer MEDICAID, SELFPAY ==
[2024-04-18] VITALS (7 sets, daily range): BP systolic 129–165; BP diastolic 75–93; PULSE 83–97; RESP 16–18; TEMP 36.2–36.8; O2SAT 95–97; BMI 42.0
[2024-04-18] MEDS: Lactated Ringers 1,000 ML 80 ML IVCONT (14:22)
--- NOTE | 2024-04-18 14:35 | HO.ANESPROP2 ---
HPI - Anesthesia Eval Consult details Narrative: 38yo male patient for Cysto, Left ureteroscopy, retro, Laser, stent Left ureter PMFSH Active Problems Active Problems: All Active Problems Hydronephrosis, left (Acute) Left ureteral stone (Acute) LEE. Uses CPAP machine Morbid obesity BMI 42 Past Medical History Medical History Obstructive sleep apnea Hydronephrosis LUZ (acute kidney injury) Family History Family history of problems with anesthesia: No Surgical History Surgical History No pertinent past surgical history History of Problems with Anesthesia: No Social History Social History Are you a primary lawn care specialist to a significant other at home: No Do you presently have visiting nurse or other home services: No Patient Tobacco Use Status: Never used Tobacco Have you been hit, kicked, punched, or otherwise hurt by someone within the past year? If so, by whom?: No Advance Directives: No Advance Directives Information Provided: Yes Recently lost weight without trying: No Nutrition Risks: No Nutritional Risk Meds Allergies Allergy/AdvReac Type Severity Reaction Status Date / Time No Known Allergies Allergy Verified 04/18/24 14:33 Active Medications: Current Medications Lactated Ringer's (Lr) 1,000 mls @ 80 mls/hr IVCONT .[id number] JARVIS Last Admin: 04/18/24 14:22 Dose: 80 mls/hr Levofloxacin (Levaquin) 500 mg in 100 mls @ 100 mls/hr IV PREOP ONE Stop: 04/18/24 15:31 Acetaminophen (Ofirmev) 1,000 mg in 100 mls @ 400 mls/hr IV PREOP ONE Stop: 04/18/24 14:46 Exam Height,Weight and Vital Signs: Height 6 ft 1 in Weight 144.242 kg Vital Signs Temp Pulse Resp BP Pulse Ox O2 Del Method 04/18/24 14:37 98.2 F 97 18 165/93 H 96 Room Air Airway Mallampati Class: II TM Dist: >3cm Neck ROM: Full Loose/Missing/Broken Teeth: No Heart: RRR Lungs: CTAB Assessment and Plan Assessment Anesthesia Assessment: Anesthesia Plan Discussed and Chart Reviewed Final Anesthetic Review Family History of Problems with Anesthesia: No History of Problems with Anesthesia: No NPO: Yes ASA Class: III and Emergency Final Preanesthetic Review: No Changes in Pt Med Stat, Meds/Allgs Chart Reviewed, Consent Obtained/Reviewed and Anes Risks/Benef Reviewed Patient Risk: Intermediate Procedure Risk: Low Assessment/Block/Sedation in SS: Assess/Block/Sedation-SS Anesthetic Plan Anesthetic Plan: GA Disposition: Standard PACU
--- NOTE | 2024-04-18 14:44 | MHC.SHP ---
Pre-Procedural Eval Section A - 24 Hr Update-Section A only Date of Service: 04/18/24 The patient is an INPATIENT: No Changes since office visit: No Cold of Flu in the past 2 weeks, No New Medical Problems, No Changes in Medication and No Patient answered all questions The patient has been examined within 24 hours of the surgical procedure. The History & Physical has been completed within 30 days and I have reviewed it.: No Section B - Complete if H&P > 30 days Chief Complaint: Unspecified hydronephrosis Details of Present Illness: Seen in emergency room proximally 8 days ago. Found to have distal 6 mm left ureteric stone with proximal hydro uretero nephrosis and elevated creatinine. Was able to tolerate oral pain medications and discharged home. Here for procedure. Plan on cystoscopy, left retrograde, left ureteroscopy with laser lithotripsy stone basketing and stent placement Relevant Family History (Specify if Yes): No Relevant Social History: None Present Medications: see Short Stay Collaborative assessment Medical History: No relevant PMH History of Previous Operations: No relevant previous surgery Allergies: Allergies Allergy/AdvReac Type Severity Reaction Status Date / Time No Known Allergies Allergy Verified 04/18/24 14:33 Review of Systems Sugical H&P ROS: Negative: Constitution, Cardiovascular, Respiratory, Neurological, Psychiatric, Hem-Onc, Allergic/Immunologic, Gastrointestinal, Genitourinary, Musculoskeletal, Integumentary, Endocrine and Eyes/Ears/Nose/Throat Exam Surgical H&P Exam: Normal: HEENT, Normal: Heart, Normal: Lungs, Normal: Extremities, Normal: Abdomen, Normal: Skin and Normal: Neurological Plan Diagnosis/Plan: Unchanged (Cystoscopy, left retrograde, left ureteroscopy with laser lithotripsy stent placement) I have reviewed the history and physical and performed a pertinent physical examination on my patient. No changes have occurred unless specified. Time Spent With Patient Time: Total time managing care of this patient today ____ minutes.
--- NOTE | 2024-04-18 15:35 | P.OP_ITS ---
Operative Note Operative Note Date of Service: 04/18/24 Narrative: PreOperative Diagnosis: Distal left ureteric stone with proximal hydro uretero nephrosis Post Operative Diagnosis: Distal left ureteric stone with proximal hydro uretero nephrosis Procedure: - cystoscopy, left left retrograde - left dilatation of ureteric orifice under fluoroscopy - left ureteroscopy, laser lithotripsy, stone basketing - left stent placement Surgeon: Dr Obed Brewster Anesthesia: General Indications for procedure: Seen in emergency room with left-sided flank pain. 6 mm distal left ureteric stone seen on CT scan with proximal hydro uretero nephrosis. Pain controlled emergency room. Presents for definitive intervention. Procedure: After informed consent was verified the patient was brought to the operating room and placed in a supine position. Anesthesia was administered per protocol. The patient was placed in a modified dorsal lithotomy position and prepped and draped in a sterile fashion. Safety pause time-out and side of surgery were confirmed. Images were available for review. Antibiotic administration confirmed. A 22 Kittitian cystoscope was inserted per urethra. The urethra was without abnormality. The bladder was normal in its entirety. Both ureteric orifices were seen in normal position. The left ureteric orifice was cannulated and a retrograde examination was performed. Filling defects seen distal proximal hydro uretero nephrosis . A Sensor guidewire was placed up to the level of the renal pelvis under fluoroscopy. The rigid cystoscope was removed. A River[place] dilator was placed over the Sensor guidewire and used to dilate the ureteric orifice under fluoroscopy. The dilator was removed. The semi rigid ureteral scope was placed alongside the Sensor guidewire. Stone was encountered in the distal ureter. Using a 365 micro holmium laser fiber the stone was broken into small pieces using a combination of hammer and dusting techiques. Stone fragments were removed from the ureter using a 2.4 Kittitian ZeroTip basket. Once the fragments were removed a decision was made to place a ureteric stent. Based on the height of the patient a 6 Fr x variable length stent was used. String remained in place The rigid cystoscope was backloaded over the wire and advanced into the bladder. A 6 Kittitian by variable length cm double-J stent was placed into the renal pelvis and bladder under a combination of fluoroscopy and direct visualization. Proximal positioning of the stent was confirmed using fluoroscopy. The bladder was emptied. The stent string was secured to the penis with dressing tape. The patient tolerated the procedure well and was extubated in the operating room. They were transferred in stable condition to the recovery area. Pathology: Stones Drains: Double J stent as described above
[2024-04-18] MEDS: oxyCODONE HCl Immed Release 5 MG TABLET PO (16:06)
[2024-04-18] MEDS: Phenazopyridine HCL 100 MG TABLET PO (16:07)
[2024-04-29 02:24] LABS: Stone Source STONE
== END 2024-04-18 16:33 | disposition home or self-care (01) ==
PROVIDERS: Visit Provider Urology
PROC: (CPT 52356; principal; 2024-04-18 16:00)
DX: N13.2 Hydronephrosis with renal and ureteral calculous obstruction (principal); N17.9 Acute kidney failure, unspecified; Z87.442 Personal history of urinary calculi; G47.33 Obstructive sleep apnea (adult) (pediatric); E66.01 Morbid (severe) obesity due to excess calories; Z68.41 Body mass index [BMI] 40.0-44.9, adult; Z79.899 Other long term (current) drug therapy
CPT/HCPCS: 52356; 82365; 88300; C1758; C1769; C2617; J0131; J1100; J1956; J2003; J2250; J2405; J2704; J3010; Q9967

== ENCOUNTER → 2024-04-18 14:02 | Outpatient (BNV) | payer MEDICAID, SELFPAY | PROVIDERS: Visit Provider Urology | DX: N13.2 Hydronephrosis with renal and ureteral calculous obstruction (principal) | CPT/HCPCS: 52356; 74420 ==

== ENCOUNTER 2024-06-03 13:00 | Outpatient (AMB) | payer MEDICAID, SELFPAY ==
--- OUTSIDE RECORDS SUMMARY | 2024-06-03 13:16 | XMS_ITS | Clinical Summary ---
Author Organization [facility] ity Address [address] [place] [address] Care Team Providers Care Reinforcer Name Role Phone Josue Campos MD Primary Care Provider [phone] Surgical History Surgery Date Site/Laterality Comments OTHER SURGICAL HISTORY PROCEDURE: DENIES PREVIOUS SURGERY Family History Medical History Relation Name Comments Diabetes Brother Colon cancer Father Hypertension Father Stroke Father Relation Name Status Comments Brother Father Social History Tobacco Use Types Packs/Day Years Used Date Smoking Tobacco: Former Cigarettes Q uit: 05/04/2017 Smokeless Tobacco: Never Alcohol Use Standard Drinks/Week Comments Not Currently 0 (1 standard drink = 0.6 oz pur e alcohol) Sex and Gender Information Value Date Recorded Sex Assigned at Not on file Gender Identity Not on file Sexual Orientation Not on file Obstetrics History Plan of Treatment Health Maintenance Due Date Last Done Comments DTaP,Tdap,and Td Vaccines (1 - Tdap) 2003 Hepatitis B Vaccines (1 of 3 - 19+ 3-dose series) 2003 Cholesterol Screening (Lipid Panel) 04/06/2022 Depression Screening 04/06/2022 HIV Screening 04/06/2022 Hepatitis C Screening 04/06/2022 Social Influencers of Health Screening 04/06/2022 Hypertension/CHF/CAD Annual BMP Blood Test 04/10/2022 COVID-19 Vaccine (3 - 2023-2 5 season) 2024 10/18/2020, 09/27/2020 Influenza Vaccine (#1) 2024 HIB Vaccines Aged Out No longer eligi ble based on patient's age to complete this topic HPV Vaccines Aged Out No longer eligi ble based on patient's age to complete this topic Hepatitis A Vaccines Aged Out No long er eligible based on patient's age to complete this topic IPV Vaccines Aged Out No longer eligi ble based on patient's age to complete this topic MMR Vaccines Aged Out No longer eligi ble based on patient's age to complete this topic Meningococcal ACWY Vaccine Aged Out N o longer eligible based on patient's age to complete this topic Pneumococcal Vaccine: Pediatrics (0 to 5 Years) and At-Risk Patients (6 to 64 Years) Aged Out No longer eligible b ased on patient's age to complete this topic RSV Immunization Patients Under 20 months Aged Out No longer eligible b ased on patient's age to complete this topic Varicella Vaccines Aged Out No longer eligible based on patient's age to complete this topic Care Teams Reinforcer Relationship Specialty Start Date End Date Josue Campos MD PCP - General Internal Medicine 11/14/20
--- OUTSIDE RECORDS SUMMARY | 2024-06-03 13:16 | XMS_ITS | Clinical Summary ---
Author Organization [facility] Address [address] [place] [address] Care Team Providers Care Leather Stripping Machine Operator Name Role Phone Unavailable Primary Care Provider Unavailabl e Source Comments PLEASE NOTE, if this patient is a minor, it may be UNLAWFUL to discuss sensitive information that is contained in these records (such as FAMILY PLANNING, MENTAL HEALTH or SUBSTANCE ABUSE) with the minor patient's parent or other person without the patient's specific authorization.[facility] Social History Tobacco Use Types Packs/Day Years Used Date Smoking Tobacco: Never Assessed Social Connections Answer Date Recorded Connectedness 0 03/25/2024 Financial Resource Strain Answer Date R ecorded Financial Resource Strain 0 2023 Stress Answer Date Recorded Stress 0 03/25/2024 Physical Activity Answer Date Recorded Physical Activity 0 03/25/2024 Food Insecurity Answer Date Recorded Food 0 03/25/2024 Transportation Needs Answer Date Record ed Transportation 0 03/25/2024 Housing Stability Answer Date Recorded Housing 0 03/25/2024 Safety and Environment Answer Date Hernesto rded Safety 0 03/25/2024 Utilities Answer Date Recorded Utilities 0 03/25/2024 Employment Answer Date Recorded Stress 0 03/25/2024 Sex and Gender Information Value Date Recorded Sex Assigned at Not on file Legal Sex Male 1:16 PM PDT Gender Identity Not on file Sexual Orientation Not on file Plan of Treatment Upcoming Encounters Date Type Department Care Team (Late st Contact Info) Description 06/24/2024 9:20 AM EST Office Visit [facility] [address] [place] [id number] Beatriz Silva NP [address] [place] [address] Health Maintenance Due Date Last Done Comments Diabetes Screening 1984 Hepatitis C Screening 1984 Lipid Screening 1984 Tobacco Screening 1984 HIV Screening 1999 Hypertension Screening (#1) 2002 Imm-DTaP/Tdap/Td (1 - Tdap) 2003 Imm-Hepatitis B (1 of 3 - 19+ 3-dose series) 4 [id number] (1 - 2023- season) 2024 Imm-Influenza (#1) 2024 Alcohol and Drug Screen 05/04/2024 Depression Annual Screen 05/04/2024 Procedures Procedure Name Priority Date/Time Associated Diagnosis Comments REFERRAL SCANNED DOCUMENT 04/15/2024 3:00 AM EST from Last 3 Months Results * REFERRAL SCANNED DOCUMENT (04/15/2024 3:00 AM EST) 04/15/2024 3:00 AM EST [facility] Provider Default SCAN REFERRAL Final Resu lt from Last 3 Months Insurance [id number] [employer]Sav PLAN Member Subscriber Plan / Payer (Ef fective 2023-Present) Name:Joaquin Vizcarra I Relation to Subscriber:Self Name:Joaquin Vizcarra I Payer ID:[id number] Group ID:Not on file Type:Medicaid Address: [address] [address] [place] [address] [facility] Medicaid Address: [address] [place] [address]
--- NOTE | 2024-06-03 13:18 | MHC.OFFVIS ---
Intake Visit Reasons: 6 week follow up Intake Note: Patient is present for 6w f/u Urology Medication:tamsulosin Antibiotic Allergy:none Blood Thinner:none Tutorial Laboratory Supervisor Required: No Allergies No Known Allergies Allergy (Verified 06/03/24 13:19) HPI Comments Details: Cheyanne is a pleasant male. He is seen for the following urologic conditions - nephrolithiasis Six week follow-up Discussed Stone composition Encouraged increased fluid and decreased fluid calories Six-month follow-up imaging Lemon water therapy Nephrolithiasis Presentation through emergency room 04/26 Underwent left-sided ureteroscopy Calcium 9.2 Stone composition Calcium Oxalate Monohydrate (Whewellite) 95% Carbonate Apatite ([place]ahllite) 5% 04/07/24--CTAP-Moderate left hydronephrosis and hydroureter secondary to the presence of a 4 x 5 mm obstructing calculus at the left UVJ. No additional renal calculi or obstruction. [facility] Medical History Obstructive sleep apnea Hydronephrosis LUZ (acute kidney injury) Surgical History (Updated 04/21/24 @ 09:39 by CANDELARIA Card) History of lithotripsy No pertinent past surgical history Social History Are you a primary animal care assistant to a significant other at home: No Do you presently have visiting nurse or other home services: No Patient Tobacco Use Status: Never used Tobacco Review of Systems Const Denies chills and Denies fever(s) Card Reports no additional complaints and Denies syncope Resp Denies cough GI Denies abdominal pain and Denies heartburn Reports as per HPI and Denies change in libido Neuro Denies syncope Psych Denies change in libido Endo Denies change in libido Physical Exam Const General: cooperative, healthy appearing, comfortable and no acute distress Orientation/consciousness: patient oriented x3 HEENT Face and sinus: Yes normal facial exam Mouth: moist mucous membranes Neck Neck: Yes normal visual inspection, Yes full ROM and Yes trachea midline Chest Chest palpation & inspection: normal inspection of the chest Resp Effort & Inspection: normal respiratory effort, able to speak in complete sentences and no respiratory distress GI Inspection: Yes normal to inspection Back/Spine/Pelvis Cervical Spine: normal cervical lordosis Thoracic/Lumbar Spine: thoracic and lumbar spine normal to inspection Skin General skin exam: no rashes or lesions noted Neuro General: patient oriented x3, gait normal, tone normal and moves all extremities Extrem General: Yes normal to inspection and Yes capillary refill normal Assessment & Plan Assessment & Plan (1) Left ureteral stone: Code(s): N20.1 - Calculus of ureter Category: Medical (2) Hydronephrosis, left: Code(s): N13.30 - Unspecified hydronephrosis Category: Medical Plan Six-month follow-up imaging Orders: Orders US renal BI 6 Months N20.1 - Calculus of ureter Patient Instructions: Imaging studies, laboratory and physical exam results were discussed and reviewed in detail. No major barriers to patient understanding were identified. An opportunity to ask questions regarding the treatment plan was provided. All questions were answered. The patient expressed understanding and agreement with the above treatment plan. The patient is aware they should contact our office by phone for worsening of their current condition or the appearance of new urologic symptoms. Compliance is encouraged with any medications and followup testing that is ordered. It is a privilege to participate in the urologic care of your patient. If you have any questions or concerns regarding treatment for the above conditions, or other urologic issues, please do not hesitate to contact me. The office telephone contact is [phone]. This note is constructed using voice recognition software. While every effort has been made to ensure accuracy customer experience analyst errors may have been included. Yours sincerely, Dr Obed Brewster MD, [facility] - Urology Providers of Expert, Compassionate Care for the Genitourinary System Coding Level of Care Code Est Pt Level 3 (15704) Diagnoses Left ureteral stone N20.1 Hydronephrosis, left N13.30
== END 2024-06-03 13:47 | disposition home or self-care (01) ==
PROVIDERS: Visit Provider Urology
DX: N20.1 Calculus of ureter (principal); N13.30 Unspecified hydronephrosis
CPT/HCPCS: 99213

== ENCOUNTER → 2024-06-03 13:00 | Outpatient (BNVA) | payer MEDICAID, SELFPAY | PROVIDERS: Visit Provider Urology | DX: N20.1 Calculus of ureter (principal); N13.30 Unspecified hydronephrosis | CPT/HCPCS: 99212 ==

== ENCOUNTER 2024-08-28 11:31 | Emergency (ER) | payer MEDICAID, SELFPAY ==
--- NOTE | ~2024-08-28 | CT_ITS ---
CLINICAL HISTORY: Headache off and on for [address] head without contrast. COMPARISON: None FINDINGS: Mucosal thickening present within the frontal and ethmoid sinuses. Osteoma versus ossified secretions present within the left frontal sinus. Trace amount of fluid present along the posterior aspect of the left mastoid air cells. No calvarial fracture. No evidence for mass or mass effect. No intracranial hemorrhage or abnormal extra-axial fluid collection. No evidence of hydrocephalus. The basilar cisterns are patent. Posterior fossa appears unremarkable. IMPRESSION: 1. No acute intracranial findings. 2. Inflammatory changes of the frontal and ethmoid sinuses. 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 This document has been electronically signed by: Wood Hart MD on 08/28/2024 13:08:59
[2024-08-28 11:39] VITALS: BP 157/77; PULSE 90; RESP 19; TEMP 36.6; O2SAT 99; BMI 41.1
--- NOTE | 2024-08-28 11:42 | ECG_ITS ---
Test Reason : HEADACHE Blood Pressure : */* mmHG Vent. Rate : 77 BPM Atrial Rate : 77 BPM P-R Int : 152 ms QRS Dur : 84 ms QT Int : 354 ms P-R-T Axes : 61 0 23 degrees QTcB Int : 400 ms Normal sinus rhythm Normal ECG No previous ECGs available Referred By: Patrice Munson Electronically Signed By: Akhil Mena
--- NOTE | 2024-08-28 11:47 | ED.GENADULT ---
HPI - General Adult General Chief complaint: Headache Stated complaint: headache, swollen forehead Time Seen by Provider: 08/28/24 13:55 Source: patient Mode of arrival: ambulatory Limitations: no limitations History of Present Illness ED Provider: Patrice Jorge [facility] narrative: 39 yold male with pmh of HTN presents to the ED for frontal headache off and on for 5 months. Patient can not get appointment with PCP. patient states no fever, chills, chest pain, shortness of breath, diziness, photophobia, neck stiffnes, weakness, loss of vision, or slurred speech. patient states no recent head trauma. Related Data Previous Rx's ?Medication ?Instructions ?Recorded oxycodone 5 mg tablet 5 mg PO Q6-8H PRN pain #6 tabs 04/15/24 tamsulosin 0.4 mg capsule (Flomax) 0.4 mg PO BEDTIME to help pass 04/15/24 stone #10 caps oxycodone 5 mg tablet 5 mg PO Q8H PRN pain 3 days #8 tabs 04/18/24 phenazopyridine 100 mg tablet 100 mg PO TID PRN Spasm 4 days #12 04/18/24 (Pyridium) tabs tamsulosin 0.4 mg capsule 0.4 mg PO BEDTIME 14 days #14 caps 04/18/24 amoxicillin 875 mg-potassium 1 tab PO Q12H #20 tabs 08/28/24 clavulanate 125 mg tablet naproxen 500 mg tablet 500 mg PO BID PRN pain #14 tabs 08/28/24 triamcinolone acetonide 55 mcg 2 spray intranasal DAILY 7 days 08/28/24 nasal spray aerosol (Nasacort) #16.9 mL Allergies Allergy/AdvReac Type Severity Reaction Status Date / Time No Known Allergies Allergy Verified 08/28/24 11:41 Review of Systems Review of Systems: headache for 5 months Yes all other systems are reviewed and are negative PMF Past Medical History Medical History (Updated 08/29/24 @ 00:00 by Brad Greco) Obstructive sleep apnea Hydronephrosis LUZ (acute kidney injury) Surgical History (Updated 04/21/24 @ 09:39 by CANDELARIA Card) History of lithotripsy No pertinent past surgical history Social History Social History Are you a primary customer care voice consultant to a significant other at home: No Do you presently have visiting nurse or other home services: No Patient Tobacco Use Status: Never used Tobacco Advance Directives: No Advance Directives Information Provided: Yes Do you have a plan to hurt others: No Plan Physical Exam ED Vital Signs: Vital Signs - 24 hr 08/28/24 11:39 Temperature 98 F Pulse Rate 90 Respiratory Rate 19 Blood Pressure 157/77 H Pulse Oximetry 99 Oxygen Delivery Method Room Air BMI result Body Mass Index 41.1 Const General: cooperative, healthy appearing, comfortable, no acute distress, well developed, alert, awake and Physically active Orientation/consciousness: patient oriented x3 HENMT Head: Yes normal to inspection, Yes No palpable skull fracture present and Yes normocephalic Ears: hearing grossly normal bilaterally, external ears normal, TM's normal bilaterally, TM normal on the right, TM normal on the left, EAC's normal, mastoids normal and no periauricular adenopathy Face and sinus: Yes normal facial exam, Yes face symmetric and Yes sinus tenderness (frontal) Throat: Yes posterior oropharynx normal, Yes tonsils normal and Yes uvula midline Eyes General: appearance normal, both eyes and all related structures Neck Neck: Yes normal visual inspection, Yes full ROM, Yes no lymphadenopathy, Yes no meningeal signs, Yes trachea midline, Yes supple, No anterior neck swelling and No tender Chest Chest palpation & inspection: normal inspection of the chest and normal palpation of entire chest wall Resp Effort & Inspection: normal respiratory effort and able to speak in complete sentences Auscultation: clear to auscultation bilaterally Cardio Jugular venous distension: no JVD Heart sounds: S1 normal heart sound present and S2 normal heart sound present GI Inspection: Yes normal to inspection Palpation (GI): Soft to palpation, not firm, nontender, no guarding and not rigid General: Yes no CVA tenderness Back/Spine/Pelvis Back: no CVA tenderness and No back tenderness Skin General skin exam: no rashes or lesions noted, elasticity normal and turgor normal Neuro General: patient oriented x3, gait normal, tone normal, moves all extremities, Normal light touch and pain sensation, no meningeal signs, no focal motor deficits, CN's II-XI intact bilaterally and normal sensation to monofilament Extrem General: Yes normal to inspection, Yes full ROM and Yes capillary refill normal Psych Appearance: grossly normal, well kempt and not disheveled Course Course Course Narrative: RME; 39-year-old male presents to ED for frontal headache off and on for the past 5 months. Patient denies any recent trauma, slurred speech, facial droop, paralysis of extremities, nausea or vomiting. Patient states history of high blood pressure and prediabetes and they are controlled. Head CT EKG labs ordered Medical Decision Making Medical Decision Making MDM Narrative: 39-year-old male presents to the ED for headache off and on for 5 months. Patient has no neuro deficits. Patient denies any trauma. . Patient has no signs for meningitis. EKg labs normal. 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 Patient explained worrisome signs and informed to return to the ED if he has them. Differential Diagnosis Differential Diagnoses: The differential diagnosis associated with the presentation includes (Sinusitis, chronic headache, migraines) Admission/Observation Consideration of admission/observation: Escalation of care including admission/observation considered Lab Data [facility] Lab Attestation statement: I reviewed the patient's lab results. 08/28/24 12:29 08/28/24 12:29 Labs: Lab Results 08/28/24 Range/Units 12:29 WBC 9.5 (4.8-10.8) X10*3/uL RBC 5.04 (4.60-5.80) X10*6/uL Hgb 14.0 (14.0-18.0) g/dl Hct 43.0 (42.0-52.0) % MCV 85.3 (80.0-98.0) fL MCH 27.8 (27.0-33.0) pg MCHC 32.6 (31.0-36.0) g/dl RDW 13.0 (11.0-16.0) % Plt Count 225 D (160-400) X10*3/uL MPV 9.9 (9.4-12.4) fL Immature Gran % (Auto) 0.7 H (0.0-0.4) % Neut % (Auto) 65.7 (45-73) % Lymph % (Auto) 23.7 (20-40) % [place] % (Auto) 6.1 (2-11) % Eos % (Auto) 3.3 (0-4) % Baso % (Auto) 0.5 (0-2) % Lymph # (Auto) 2.3 (1.2-4.9) X10*3/uL [place] # (Auto) 0.6 (0.1-1.2) X10*3/uL Eos # (Auto) 0.3 (0.0-0.4) X10*3/uL Baso # (Auto) 0.1 (0.0-0.2) X10*3/uL Abs Immat Gran (auto) 0.07 H (0.00-0.03) X10*3/uL Absolute Neuts (auto) 6.2 (2.0-8.3) x10*3/uL Absolute Nucleated RBC 0.000 (0.0-0.012) X10*3/uL Nucleated RBC % (auto) 0.0 (0.0-0.2) /100WBC Sodium 144 (135-145) mmol/L Potassium 3.7 (3.3-5.1) mmol/L Chloride 107 (96-108) mmol/L Carbon Dioxide 28 (22-29) mmol/L Anion Gap 13 (12-20) BUN 13 (9-16) mg/dL Creatinine 0.85 (0.5-1.4) mg/dL Estim Creat Clear Calc 175.4 Estimated GFR > 60 Random Glucose 79 (60-115) mg/dL Calcium 9.5 (8.4-10.2) mg/dL Total Bilirubin 0.5 (0.0-1.0) mg/dL AST 14 (5-37) U/L ALT 23 (0-40) U/L Alkaline Phosphatase 93 (39-117) U/L Troponin I High Sens < 2.7 (<3.5-35.0) ng/L Total Protein 7.8 (6.5-8.0) g/dL Albumin 4.3 (3.5-5.0) g/dL Independent Interpretation I performed an independent interpretation of an: EKG (Negative STEMI) and CT Scan Radiology Impression Discussion of test interpretation with radiology: I have reviewed the radiologist's reading. Independent Historian Clinical information obtained from an independent historian. History obtained from or confirmed by: Other (Patient) Discharge Plan Discharge Clinical Impression: Headache, Sinusitis Patient Disposition: Home, Self-Care Instructions: Sinusitis (ED), Acute Headache (ED) Additional Instructions: Recommend follow-up with primary care provider. CT scan shows sinusitis and also left osteoma in the frontal sinus which has a benign mass most likely noncancerous but will need follow-up. Return to the ED immediately for severe headache, nausea, vomiting, dizziness, fever, chills, or any other concerning symptoms. CT head without contrast. COMPARISON: None FINDINGS: Mucosal thickening present within the frontal and ethmoid sinuses. Osteoma versus ossified secretions present within the left frontal sinus. Trace amount of fluid present along the posterior aspect of the left mastoid air cells. No calvarial fracture. No evidence for mass or mass effect. No intracranial hemorrhage or abnormal extra-axial fluid collection. No evidence of hydrocephalus. The basilar cisterns are patent. Posterior fossa appears unremarkable. IMPRESSION: 1. No acute intracranial findings. 2. Inflammatory changes of the frontal and ethmoid sinuses. 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 This document has been electronically signed by: Wood Hart MD on 08/28/2024 13:08:59 Prescriptions: New naproxen 500 mg tablet 500 mg PO BID PRN (Reason: pain) Qty: 14 0RF triamcinolone acetonide [Nasacort] 55 mcg aerosol,spray 2 spray intranasal DAILY 7 Days Qty: 16.9 0RF Rx Instructions: administer into each nostril amoxicillin-pot clavulanate 875-125 mg tablet 1 tab PO Q12H Qty: 20 0RF No Action tamsulosin 0.4 mg capsule 0.4 mg PO BEDTIME 14 Days Qty: 14 0RF phenazopyridine [Pyridium] 100 mg tablet 100 mg PO TID PRN (Reason: Spasm) 4 Days Qty: 12 0RF oxycodone 5 mg tablet 5 mg PO Q8H PRN (Reason: pain) 3 Days Qty: 8 0RF Rx Instructions: Partial Fill upon patient request. tamsulosin [Flomax] 0.4 mg capsule 0.4 mg PO BEDTIME Qty: 10 0RF oxycodone 5 mg tablet 5 mg PO Q6-8H PRN (Reason: pain) Qty: 6 0RF Rx Instructions: Partial Fill upon patient request. Referrals: [place],[facility] [Primary Care Provider] - (Sinusitis. Osteoma of the left frontal sinus) Stand Alone Forms: Work/School Release Interventions: ED Discharge Assessment Last Done: 08/28/24 14:17 Discharge Date/Time: 08/28/24 14:23 Print Language: Setswana
[2024-08-28 12:37] LABS: Basophils Absolute Auto 0.1 X10*3/uL (0.0-0.2); Basophils Percent Auto 0.5 % (0-2); Eosinophils Absolute Auto 0.3 X10*3/uL (0.0-0.4); Eosinophils Percent Auto 3.3 % (0-4); Imm Gran Abs Auto 0.07 X10*3/uL (0.00-0.03); Imm Gran Pct Auto 0.7 % (0.0-0.4); Lymphocytes Absolute Auto 2.3 X10*3/uL (1.2-4.9); Lymphocytes Percent Auto 23.7 % (20-40); MANUAL DIFF FLAG NO; Mean Corpuscular HGB Conc 32.6 g/dl (31.0-36.0); Mean Corpuscular Hemoglobin 27.8 pg (27.0-33.0); Mean Corpuscular Volume 85.3 fL (80.0-98.0); Mean Platelet Volume 9.9 fL (9.4-12.4); Monocytes Absolute Auto 0.6 X10*3/uL (0.1-1.2); Monocytes Percent Auto 6.1 % (2-11); Neutrophils Absolute Auto 6.2 x10*3/uL (2.0-8.3); Neutrophils Percent Auto 65.7 % (45-73); Platelet Count 225 X10*3/uL (160-400); Red Blood Count 5.04 X10*6/uL (4.60-5.80); White Blood Count 9.5 X10*3/uL (4.8-10.8)
[2024-08-28 12:51] LABS: Alanine Aminotransferase 23 U/L (0-40); Albumin Level 4.3 g/dL (3.5-5.0); Alkaline Phosphatase 93 U/L (39-117); Anion Gap 13 (12-20); Aspartate Amino Transferase 14 U/L (5-37); Bilirubin Total 0.5 mg/dL (0.0-1.0); Blood Urea Nitrogen 13 mg/dL (9-16); Calcium 9.5 mg/dL (8.4-10.2); Carbon Dioxide 28 mmol/L (22-29); Chloride 107 mmol/L (96-108); Creatinine Clr Calc Pharmacy 175.4; Estimated Glomerular Filt Rate > 60; Glucose Random 79 mg/dL (60-115); Potassium 3.7 mmol/L (3.3-5.1); Sodium 144 mmol/L (135-145); Total Protein 7.8 g/dL (6.5-8.0)
[2024-08-28 13:09] LABS: Troponin-I High Sensitivity < 2.7 ng/L (<3.5-35.0)
[2024-08-28 14:17] VITALS: BP 157/77; PULSE 90; RESP 19; TEMP 36.6; O2SAT 99
== END 2024-08-28 14:23 | disposition home or self-care (01) ==
LOC: HO.ED 14:19
PROVIDERS: Physician Assistant; Emergency Provider Emergency Medicine; PCP Dentist General Practice
DX: R51.9 Headache, unspecified (principal); J32.1 Chronic frontal sinusitis
CPT/HCPCS: 36415; 70450; 80053; 84484; 85025; 93005; 99283; 99284

== ENCOUNTER → 2024-08-28 11:42 | Outpatient (BNV) | payer MEDICAID, SELFPAY | PROVIDERS: Emergency Provider Emergency Medicine; PCP Dentist General Practice; Visit Provider Internal Medicine Cardiovascular Disease | DX: R51.9 Headache, unspecified (principal) | CPT/HCPCS: 93010 ==

== ENCOUNTER → 2024-08-28 11:42 | Outpatient (BNV) | payer MEDICAID, SELFPAY | PROVIDERS: Emergency Provider Emergency Medicine; PCP Dentist General Practice; Visit Provider Radiology Diagnostic Radiology | DX: J01.10 Acute frontal sinusitis, unspecified (principal) | CPT/HCPCS: 70450 ==

== ENCOUNTER 2024-10-24 14:36 | Emergency (ER) | payer MEDICAID, SELFPAY ==
--- OUTSIDE RECORDS SUMMARY | 2024-10-24 17:40 | XMS_ITS | Clinical Summary ---
Author Organization [facility] Address [address] [place] [address] Care Team Providers Care Golf Shoe Spike Assembler Name Role Phone Josue Campos MD Primary Care Provider [phone] Surgical History Surgery Date Site/Laterality Comments OTHER [...] at Not on file Legal Sex Male 6:15 AM EST Gender Identity Not on file Sexual Orientation Not on file Obstetrics History Plan of Treatment Health Maintenance Due Date Last Done Comments DTaP,Tdap,and Td Vaccines (1 - Tdap) 2003 Hepatitis B Vaccines (1 of 3 - 19+ 3-dose series) 2003 Cholesterol Screening (Lipid Panel) 04/06/2022 HIV Screening 04/06/2022 Hepatitis C Screening 04/06/2022 Social Influencers of Health Screening 04/06/2022 Hypertension/CHF/CAD Annual BMP Blood Test 04/10/2022 COVID-19 Vaccine (3 - 2023-2 5 season) 2024 10/18/2020, 09/27/2020 Influenza Vaccine (Season Ended) 2025 Depression Screening 06/24/2025 06/24/2024 HIB Vaccines Aged Out No longer eligi [...] patient's age to complete this topic Meningococcal B Vaccine Aged Out No l onger eligible based on patient's age to complete [...] age to complete this topic Care Teams Golf Shoe Spike Assembler Relationship Specialty Start Date End Date Josue Campos MD PCP - General Internal Medicine 11/14/20
== END 2024-10-24 16:41 | disposition left against medical advice (07) ==
LOC: HO.ED 16:27
PROVIDERS: Emergency Provider Emergency Medicine; PCP Dentist General Practice
DX: R20.0 Anesthesia of skin (principal); R42 Dizziness and giddiness; Z53.21 Procedure and treatment not carried out due to patient leaving prior to being seen by health care provider

== ENCOUNTER 2025-03-15 15:48 | Emergency (ER) | payer OTHER, SELFPAY ==
[2025-03-15 15:51] VITALS: PULSE 79; RESP 18; TEMP 36.6; O2SAT 97; BMI 42.4
[2025-03-15 15:57] VITALS: BP 147/67
--- NOTE | 2025-03-15 16:01 | ED.DENTAL ---
HPI - Dental/Oral General Chief complaint: Dental/Oral Stated complaint: right side molar pain, headache, irritated gums Time Seen by Provider: 03/15/25 15:55 Source: patient Mode of arrival: ambulatory Limitations: no limitations History of Present Illness MD Complaint: tooth pain Related Data Previous Rx's ?Medication ?Instructions ?Recorded oxycodone 5 mg tablet 5 mg PO Q6-8H PRN pain #6 tabs 04/15/24 tamsulosin 0.4 mg capsule (Flomax) 0.4 mg PO BEDTIME to help pass 04/15/24 stone #10 caps oxycodone 5 mg tablet 5 mg PO Q8H PRN pain 3 days #8 tabs 04/18/24 phenazopyridine 100 mg tablet 100 mg PO TID PRN Spasm 4 days #12 04/18/24 (Pyridium) tabs tamsulosin 0.4 mg capsule 0.4 mg PO BEDTIME 14 days #14 caps 04/18/24 amoxicillin 875 mg-potassium 1 tab PO Q12H #20 tabs 08/28/24 clavulanate 125 mg tablet naproxen 500 mg tablet 500 mg PO BID PRN pain #14 tabs 08/28/24 triamcinolone acetonide 55 mcg 2 spray intranasal DAILY 7 days 08/28/24 nasal spray aerosol (Nasacort) #16.9 mL amoxicillin 875 mg-potassium 1 tab PO BID 7 days #14 tabs 03/15/25 clavulanate 125 mg tablet ibuprofen 800 mg tablet 800 mg PO Q8H PRN pain (scale 03/15/25 score 4-6) #20 tabs Allergies Allergy/AdvReac Type Severity Reaction Status Date / Time No Known Allergies Allergy Verified 03/15/25 15:54 Review of Systems Review of Systems: Constitutional: No fever, chills, fatigue, night sweats, weight changes ENT/Mouth: No ear pain, hearing loss, nasal congestion, sinus pain, rhinorrhea, sore throat, +dental pain Eyes: No eye pain, swelling, redness, vision changes, discharge Cardio: No chest pain, palpitations, ESCOBAR, orthopnea, peripheral edema Pulm: No SOB, cough, sputum, wheezing, dyspnea, hemoptysis GI: No nausea, vomiting, hematemesis, abdominal pain, diarrhea, constipation, hematochezia, melena : No irregular bleeding, dysuria, frequency, urgency, hesitancy, hematuria, flank pain, urinary flow changes, urinary incontinence or retention MSK: No back pain, neck pain, joint pain, myalgias Skin: No lesions, rashes Neuro: No weakness, numbness, paresthesias, LOC, dizziness, headache Psych: No anxiety/panic, depression, SI/HI, AH/VH All other systems reviewed and are negative. [facility] Past Medical History Attestation statement: The following information was validated with the patient. Source: old records reviewed and nursing notes reviewed Medical History (Updated 03/15/25 @ 16:00 by URBAN Campo) Obstructive sleep apnea Hydronephrosis LUZ (acute kidney injury) Surgical History (Updated 04/21/24 @ 09:39 by CANDELARIA Card) History of lithotripsy No pertinent past surgical history Social History Social History Are you a primary healthcare translator to a significant other at home: No Do you presently have visiting nurse or other home services: No Patient Tobacco Use Status: Never used Tobacco Physical Exam Vital Signs: Vital Signs: Last Vital Signs Temp 97.9 F 03/15/25 15:51 Pulse 79 03/15/25 15:51 Resp 18 03/15/25 15:51 BP 147/67 H 03/15/25 15:57 Pulse Ox 97 03/15/25 15:51 O2 Del Method Room Air 03/15/25 15:51 BMI result Body Mass Index 42.4 Vital signs stable, afebrile. Const: General: cooperative, comfortable and no acute distress Orientation/consciousness: patient oriented x3 Limitations: no limitations HEENT: Other: + No facial edema. Tongue and lips wnl + multiple dental caries and poor dentition. right/ left lower/upper _ molar/bicuspid/cuspid/incisor with localized periapical swelling to the buccal/lingual ginginva. No pointing. No active bleeding/ discharge. TTP. No palpable fluctuance. + No edema to buccal mucosa + Posterior oropharynx without erythema/edema. Uvula midline. Controlling secretions and speaking in complete sentences + No submandublar or submental LAD + No cervical LAD + no anuel's angina Head: Yes normal to inspection, Yes No palpable skull fracture present, Yes normocephalic and Yes atraumatic Ears: hearing grossly normal bilaterally, external ears normal, TM's normal bilaterally, EAC's normal, mastoids normal and no periauricular adenopathy Eyes: General: appearance normal, both eyes and all related structures Conjunctivae: conjunctivae normal Sclerae: sclerae normal Pupils: Equal, round and reactive pupils present Neck: Neck: Yes normal visual inspection and Yes no lymphadenopathy Resp: Effort & Inspection: normal respiratory effort and no stridor Auscultation: clear to auscultation bilaterally Cardio: Rate: regular rate Rhythm: regular rhythm Skin: General skin exam: no rashes or lesions noted Neuro: General: patient oriented x3 and gait normal Cranial nerves: Yes Equal, round and reactive pupils present Course Course Course Narrative: Patient noted to have dental infection. There is no evidence of abscess that warrants drainage at this time. Will treat patient's pain and patient will be discharged home on clindamycin to ensure there is no worsening infection for follow-up with dentist. Patient advised to follow up with dentist this week. A referral has been provided. Patient has remained stable throughout ED visit today. I discussed worrisome signs and symptoms and when to return to the ED. All questions answered at this time. Patient is agreeable with disposition and stable for discharge. Medical Decision Making Medical Decision Making MDM Narrative: Differential includes dental/ periapical abscess/infection, apthous stomatitis. Unlikely mono, herpes, sialadenitis, sialolithiasis, AIRPLANE DISPATCH CLERK, retropharyngeal abscess, deep neck infection, osteomyelitis, facial cellulitis/ abscess, lymphoma. Plan for pain control and discharge home with antibiotics and dentist follow up. Differential Diagnosis Differential Diagnoses: The differential diagnosis associated with the presentation includes as above. Admission/Observation Not indicated. Tests considered The following testing was considered but not selected: I considered obtaining a CT of the soft tissues neck however these is no evidence of ludwigs angina or concern for deep tissue infection. Not warranted at this time. Prescription Management I considered prescription management with: Pain Medication and Antibiotic Social Determinants Patient?s care significantly limited by Social Determinants of Health including: Other Social Determinant of Health Discharge Plan Discharge Clinical Impression: Toothache Patient Disposition: Home, Self-Care Instructions: Toothache (ED) Additional Instructions: You were evaluated in ED today for dental pain. You have a dental infection. Augmentin is an antibiotic that has been sent to your pharmacy for treatment. Take this as prescribed and do not skip any doses. Take this to completion or the infection may persist or worsen. On Augmentin, softer bowel movements are to be expected. Call your provider if you move your bowels more than 4 times a day, your bowel movements are almost all liquid, or you get a rash.? Take Motrin at home as needed for pain. YOU NEED TO FOLLOW UP WITH A DENTIST. Keep your appointment with them this Thursday. Return with new or worsening symptoms. In the case of an emergency call 911 Prescriptions: New amoxicillin-pot clavulanate 875-125 mg tablet 1 tab PO BID 7 Days Qty: 14 0RF ibuprofen 800 mg tablet 800 mg PO Q8H PRN (Reason: pain (scale score 4-6)) Qty: 20 0RF No Action tamsulosin 0.4 mg capsule 0.4 mg PO BEDTIME 14 Days Qty: 14 0RF phenazopyridine [Pyridium] 100 mg tablet 100 mg PO TID PRN (Reason: Spasm) 4 Days Qty: 12 0RF oxycodone 5 mg tablet 5 mg PO Q8H PRN (Reason: pain) 3 Days Qty: 8 0RF Rx Instructions: Partial Fill upon patient request. naproxen 500 mg tablet 500 mg PO BID PRN (Reason: pain) Qty: 14 0RF triamcinolone acetonide [Nasacort] 55 mcg aerosol,spray 2 spray intranasal DAILY 7 Days Qty: 16.9 0RF Rx Instructions: administer into each nostril amoxicillin-pot clavulanate 875-125 mg tablet 1 tab PO Q12H Qty: 20 0RF tamsulosin [Flomax] 0.4 mg capsule 0.4 mg PO BEDTIME Qty: 10 0RF oxycodone 5 mg tablet 5 mg PO Q6-8H PRN (Reason: pain) Qty: 6 0RF Rx Instructions: Partial Fill upon patient request. Referrals: Physician,Unknown J [Primary Care Provider, Medical] Print Language: Bermudian
[2025-03-15 16:11] VITALS: BP 147/67; PULSE 77; RESP 18; TEMP 36.7; O2SAT 96
--- OUTSIDE RECORDS SUMMARY | 2025-03-15 18:54 | XMS_ITS | Clinical Summary ---
Author Organization [facility] Address [address] [place] [address] Care Team Providers Care Cook Cold Meat Name Role Phone Beatriz Silva DE Primary Care Provider Source Comments PLEASE NOTE, if this patient is a minor, it may be UNLAWFUL to discuss sensitive information that is contained in these records (such as FAMILY PLANNING, MENTAL HEALTH or SUBSTANCE ABUSE) with the minor patient's parent or other person without the patient's specific authorization.[facility] Allergies No known active allergies Medications blood pressure monitorIndication s:Essential hypertension Dispense one automated BP monitor, to be used daily and prn, length of need 99 years 1 Kit 1 5 Active carbamide peroxide (DEBROX) 6.5 % otic solutionIndicatio ns:Impacted cerumen of both ears Place 10 Drops into both ears 2 (two) times daily 15 mL 5 Active phentermine (IONAMIN) 15 mg capsuleIndication s:Morbid obesity Take 1 Capsule by mouth every morning Take 1 capsule every morning 1 to 2 hours before a meal. 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 08/28/24 Prediabetes 06/28/2024 Dyslipidemia 06/28/2024 Kidney stone 06/24/2024 Overview (06/24/2024): 2023L with urology [place] has surgery fro kidney stone, followed at [place] Morbid obesity 06/24/2024 Obstructive sleep apnea 02/25/2021 Overview (06/24/2024): 2024: using cpap [facility] Home Sleep Apnea Test: Date 02/19/2021; Wt 250#; BMI 32; JANIE (AHI) 96, AI 88; HI 8; Unclassified apneas 0; Obstructive apneas 397; Central apneas 0; Mixed apneas 14; hypopneas 38; average oxygen saturation 85% (lowest 54% with saturations <88% for 5% or more of study) - Obstructive Sleep Apnea - severe; mostly obstructive apneas; with sleep related hypoventilation by 2020 home sleep apnea test. Essential hypertension 01/20/2020 Immunizations Immunization Administration Dates Next Due Hep B,adult,adjuvanted (HEPLISAV) 06/24/2024 TDAP 06/24/2024 Family History Medical History Relation Name Comments Diabetes Daughter Prostate Cancer Father Relation Name Status Comments Brother Alive Daughter Father Alive Social History Tobacco Use Types Packs/Day Years Used Date Smoking Tobacco: Never Smokeless Tobacco: Never Tobacco Cessation:Counseling Given: Not Answered Alcohol Use Standard Drinks/Week Comments Never 0 (1 standard drink = 0.6 oz pur e alcohol) Social Connections Answer Date Recorded Connectedness 0 [...] Information Value Date Recorded Sex Assigned at Male 06/24/2024 6:27 AM PST Legal Sex Male 1:16 PM PDT Gender Identity Male 06/24/2024 6:27 AM PST Sexual Orientation Straight 06/24/2024 6: 27 AM PST Last Filed Vital Signs Vital Sign Reading Time Taken Comments Blood Pressure 122/70 09/05/2024 3:54 PM EDT Pulse 87 09/05/2024 3:54 PM EDT Temperature 36.9 C (98.4 F) 09/05/2024 3:54 PM EDT Respiratory Rate 18 06/24/2024 9:27 AM EST Oxygen Saturation 99% 07/22/2024 9:51 AM EDT Inhaled Oxygen Concentration - - Weight 148.8 kg (328 lb) 09/05/2024 3:54 PM EDT Height 208.3 cm (6' 10 ) 07/26/2024 3:02 PM EDT Body Mass Index 34.3 07/26/2024 3:02 PM EDT Plan of Treatment Health Maintenance Due Date Last Done Comments Hepatitis C Screening 1984 HIV Screening 1999 Imm-HPV (1 - 3-dose SCDM series) 2011 Imm-Hepatitis B (2 of 2 - Cp G 2-dose series) 07/22/2024 06/24/2024 [id number] ( season) 01/02/202510/18/ 021, 09/27/2020 Imm-Influenza (#1) 2025 Annual Wellness (Adult): Ind icated (All Coverage) 06/24/2025 06/24/2024 Diabetes Screening 06/27/2025 06/27/2024, 06/27/2024 Anxiety Screening 07/26/2025 07/26/2024 Tobacco Screening 09/05/2025 09/05/2024 Lipid Screening 06/27/2027 06/27/2024 Imm-DTaP/Tdap/Td (4 - Td or Tdap) 06/24/2034 06/24/2024, 02/05/2021, 01/22/2012 Alcohol and Drug Screen Completed 06/24/2024 Depression Annual Screen Completed 06/24/2024 Procedures Procedure Name Priority Date/Time Associated Diagnosis Comments COMPREHENSIVE METABOLIC PANEL Routine 06/27/2024 10:47 AM EST Essential hypertension LIPID PANEL Routine 06/27/2024 10:47 AM EST Essential hypertension from Last 3 Months or Most Recently Relevant to Health Maintenance Results * (ABNORMAL) LIPID PANEL (06/27/2024 10:47 AM EST) CHOLESTEROL, TOTAL 187 <200 mg/dL [facility] HDL CHOLESTEROL 40 > OR = 40 mg/dL [facility] TRIGLYCERIDES 107 <150 mg/dL [facility] LDL-CHOLESTEROL 126(H) 99 mg/dL (calc) [facility] Comment: Reference range: <100 Desirable range <100 mg/dL for primary prevention; <70 mg/dL for patients with CHD or diabetic patients with > or = 2 CHD risk factors. LDL-C is now calculated using the Jeffrey calculation, which is a validated novel method providing better accuracy than the Friedewald equation in the estimation of LDL-C. Hudson SS et al. PAMELA. 2013;310(19): 1482-6426 (http://education.[employer]/faq/ZSS832) CHOL/HDLC RATIO 4.7 <5.0 (calc) [facility] NON-HDL CHOLESTEROL 147(H) <130 mg/dL (calc) [facility] Comment: For patients with diabetes plus 1 major ASCVD risk factor, treating to a non-HDL-C goal of <100 mg/dL (LDL-C of <70 mg/dL) is considered a therapeutic option. Blood Blood / Unknown 06/27/2024 1 0:47 AM EST 06/27/2024 10:48 AM EST Narrative [facility] - 06/28/2024 5:33 AM EST FASTING:YES us Beatriz Silva NP LAB - BLOOD DRAW Final Resul t [facility] [address] [address], [employer] [address] [id number] * COMPREHENSIVE METABOLIC PANEL (06/27/2024 10:47 AM EST) GLUCOSE 91 65 - 99 mg/dL [facility] Comment: Fasting reference interval UREA NITROGEN (BUN) 9 7 - 25 mg/dL [facility] CREATININE (blood) 0.84 0.60 - 1.29 mg/dL [facility] EGFR 113 > OR = 60 mL/min/1. 73m2 [facility] BUN/CREATININE RATIO SEE NOTE: [facility] Comment: Not Reported: BUN and Creatinine are within reference range. SODIUM 141 135 - 146 mmol/L [facility] POTASSIUM 4.4 3.5 - 5.3 mmol/L [facility] CHLORIDE 106 98 - 110 mmol/L [facility] CARBON DIOXIDE 26 20 - 32 mmol/L [facility] CALCIUM 9.5 8.6 - 10.3 mg/dL [facility] PROTEIN, TOTAL 7.9 6.1 - 8.1 g/dL [facility] ALBUMIN 4.5 3.6 - 5.1 g/dL [facility] GLOBULIN 3.4 1.9 - 3.7 g/dL (calc) [facility] ALBUMIN/GLOBULI N RATIO 1.3 1.0 - 2.5 (calc) [facility] BILIRUBIN, TOTAL 0.6 0.2 - 1.2 mg/dL [facility] ALKALINE PHOSPHATASE 73 36 - 130 U/L [facility] AST 13 10 - 40 U/L [facility] ALT 22 9 - 46 U/L [facility] Blood Blood / Unknown 06/27/2024 1 0:47 AM EST 06/27/2024 10:48 AM EST Narrative [facility] - 06/28/2024 5:33 AM EST FASTING:YES us Beatriz Silva ELECTORATE OFFICER LAB - BLOOD DRAW Edited Resu lt - Final [facility] [facility] [address] [address], [employer] [facility] [address] [address] from Last 3 Months or Most Recently Relevant to Health Maintenance Insurance [employer] Care Teams Cook Cold Meat Relationship Specialty Start Date End Date Beatriz Silva NP [address] [place] [address] PCP - General Internal Medicine 06/24/24
--- OUTSIDE RECORDS SUMMARY | 2025-03-15 18:54 | XMS_ITS | Clinical Summary ---
Author Organization [facility] Address [address] [place] [address] Care Team Providers Care Change Person Name Role Phone Josue Campos MD Primary Care Provider [phone] Surgical History Surgery Date Site/Laterality Comments OTHER SURGICAL HISTORY PROCEDURE: DENIES PREVIOUS SURGERY Family History Medical History Relation Name Comments Diabetes Brother Colon cancer Father Hypertension Father Stroke Father Relation Name Status Comments Brother Father Social History Tobacco Use Types Packs/Day Years Used Date Smoking Tobacco: Former Cigarettes 0 Q uit: 05/04/2017 Smokeless Tobacco: Never Alcohol [...] of 3 - 19+ 3-dose series) 2003 HPV Vaccines (1 - 3-dose SCD M series) 2011 Cholesterol Screening (Lipid Panel) 04/06/2022 HIV Screening 04/06/2022 Hepatitis C Screening 04/06/2022 Social Influencers of Health Screening 04/06/2022 Hypertension/CHF/CAD Annual BMP Blood Test 04/10/2022 Depression Screening 05/04/2024 COVID-19 Vaccine (3 - 2024-2 6 season) 2025 10/18/2020, 09/27/2020 Influenza Vaccine (#1) 2025 RSV Immunization Adult Patients (1 - 1-dose 75+ series) 2059 HIB Vaccines Aged Out No longer eligi [...] 5 Years) and At-Risk Patients (6 to 49 Years) Aged Out No longer eligible b ased on patient's age to complete this topic RSV Immunization Patients Under 20 months Aged Out No longer eligible b ased on patient's age to complete this topic Varicella Vaccines Aged Out No longer eligible based on patient's age to complete this topic Care Teams Change Person Relationship Specialty Start Date End Date Josue Campos MD PCP - General Internal Medicine 11/14/20
--- OUTSIDE RECORDS SUMMARY | 2025-03-15 18:54 | XMS_ITS | Clinical Summary ---
Author Organization [employer] Address [address] [place] [address] Care Team Providers Care Devops Developer Name Role Phone Unavailable Primary Care Provider Unavailabl e Social History Tobacco Use Types Packs/Day Years Used Date Smoking Tobacco: Never Assessed Sex and Gender Information Value Date Recorded Sex Assigned at Male 03/03/2022 10:38 AM EDT Legal Sex Male 10:38 AM EDT Gender Identity Male 03/03/2022 10:38 AM EDT Sexual Orientation Straight 03/03/2022 10 :38 AM EDT Plan of Treatment Health Maintenance Due Date Last Done Comments Depression Screening 1984 Lipid Panel 1984 Disability Screening 1984 Alcohol/Substance Use Screening 1996 Tobacco Screening 1996 Family Planning (PISQ) 1999 HPV Vaccines (1 - Male 3-dos e series) 1999 Hepatitis B Vaccines (2 of 2 - CpG 2-dose series) 07/22/2024 06/24/2024 COVID-19 Vaccine (3 - 2024-2 6 season) 2025 10/18/2020, 09/27/2020 Influenza Vaccine (#1) 2025 Zoster Vaccines (1 of 2) 2034 DTaP/Tdap/Td Vaccines (3 - T d or Tdap) 06/24/2034 06/24/2024, 02/05/2021 RSV Patients and Patients Aged 60 years or older (1 - 1-dose 75+ series) 2059 HIB [...] patient's age to complete this topic Meningococcal Vaccine Aged Out No temo deric eligible based on patient's age to complete this topic Pneumococcal Vaccine: Pediatrics (0 to 5 Years) and At-Risk Patients (6 to 49) Years Aged Out No longer eligible b ased on patient's age to complete this topic RSV under 20 months Aged Out No longe r eligible based on patient's age to complete this topic Rotavirus Vaccines Aged Out No longer eligible based on patient's age to complete this topic
== END 2025-03-15 16:13 | disposition home or self-care (01) ==
PROVIDERS: Emergency Provider Emergency Medicine
DX: K08.89 Other specified disorders of teeth and supporting structures (principal)
CPT/HCPCS: 99283